=== PATIENT | female | born 1945 | race African-American/Black ===

== ENCOUNTER 2019-03-21 11:08 | Inpatient (IN) | payer OTHER, MEDICAID ==
[~2019-03-21] VITALS: Ht 160 cm; Wt 88.6 kg
[~2019-03-21 11:08] MED LIST: DIGO125T82 PO; DILT180C66 PO; FERROUS GL325 ( 36 ) PO; FURO-151 PO; HYDR-4133 PO; IBUP-1653 PO; KDUR20 PO; METF-414 PO; SACU1TAB PO
[2019-03-21 13:16] LABS: CHLORIDE 105 mEq/L (98-107)
[2019-03-21 13:23] LABS: BASOPHILS % 0.6 % (0.0-2.0); EOSINOPHILS % 1.2 % (0.0-5.0); HEMATOCRIT. 37.7 % (36.0-48.0); HEMOGLOBIN. 11.7 g/dL (12.0-16.0); LYMPHOCYTES % 16.5 % (20.0-50.0); MEAN CORPUSCULAR HEMOGLOBIN 25.1 pg (28.0-32.0); MEAN CORPUSCULAR VOLUME 80.7 fL (81.0-99.0); MEAN PLATELET VOLUME 7.6 fl (7.4-10.4); MONOCYTES % 9.5 % (2.0-8.0); NEUTROPHILS % 72.2 % (40.0-76.0); PLATELET 241 x1000/uL (130-400); RED BLOOD CELL COUNT 4.67 mill/uL (4.2-5.4); RED CELL DISTRIBUTION WIDTH 19.2 % (11.6-14.6)
[2019-03-21] MEDS ORDERED: ENALAPRIL 2.5MG/2ML VIAL 2ML IV ONE (14:15)
[2019-03-21] MEDS ORDERED: FUROSEMIDE 40MG/4ML VIAL IVP ONE (14:15)
[2019-03-21 18:32] VITALS: BP 159/82
[2019-03-21 20:00] VITALS: BP 156/56
[2019-03-21] MEDS ORDERED: DEXTROSE 50% WATER 50ML SYRINGE IV PRN (22:15)
[2019-03-21] MEDS: HYDRALAZINE HCL 50MG TABLET PO SCH (22:20)
[2019-03-22] VITALS: BP 144/53
[2019-03-22 04:00] VITALS: BP 163/71
[2019-03-22] MEDS: FUROSEMIDE 40MG/4ML VIAL IVP SCH ×2 (05:25→17:55)
[2019-03-22] MEDS: BLOOD SUGAR DIAGNOSTIC STRIP TEST SCH ×4 (07:10→20:49)
[2019-03-22] MEDS: INSULIN LISPRO 100 UNITS/ML SUBCUT SCH ×4 (07:40→20:49)
[2019-03-22 08:00] VITALS: BP 145/65
[2019-03-22 08:51] LABS: BASOPHILS % 0.5 % (0.0-2.0); EOSINOPHILS % 2.6 % (0.0-5.0); HEMATOCRIT. 42.5 % (36.0-48.0); LYMPHOCYTES % 12.9 % (20.0-50.0); MEAN CORPUSCULAR HEMOGLOBIN 24.9 pg (28.0-32.0); MEAN CORPUSCULAR VOLUME 81.5 fL (81.0-99.0); MEAN PLATELET VOLUME 8.1 fl (7.4-10.4); MONOCYTES % 9.4 % (2.0-8.0); NEUTROPHILS % 74.6 % (40.0-76.0); PLATELET 270 x1000/uL (130-400); RED BLOOD CELL COUNT 5.21 mill/uL (4.2-5.4); RED CELL DISTRIBUTION WIDTH 19.4 % (11.6-14.6)
[2019-03-22 08:56] LABS: CHLORIDE 102 mEq/L (98-107)
[2019-03-22 09:05] LABS: T4 FREE 1.12 ng/dL (0.76-1.46)
[2019-03-22] MEDS: ENOXAPARIN 40MG/0.4ML SYR SUBCUT SCH (09:31)
[2019-03-22] MEDS: LOSARTAN POTASSIUM 100 MG TABLET PO SCH (09:31)
[2019-03-22] MEDS: HYDRALAZINE HCL 50MG TABLET PO SCH ×2 (09:31→20:49)
[2019-03-22] MEDS: ASPIRIN 81MG TABLET PO SCH (09:31)
[2019-03-22 12:00] VITALS: BP_SYST 146; BP_DIAS 64; BP_DIAS 68
[2019-03-22] MEDS ORDERED: DIPHENHYDRAMINE 50MG/ML VIAL IV PRN (14:30)
[2019-03-22] MEDS ORDERED: LORAZEPAM 2MG/ML CPJ IV PRN (14:30)
[2019-03-22] MEDS ORDERED: ACETAMINOPHEN 325MG TABLET PO PRN (14:30)
[2019-03-22] MEDS ORDERED: DOCUSATE SODIUM 100MG CAPSULE PO PRN (14:30)
[2019-03-22] MEDS ORDERED: ACETAMINOPHEN 650MG SUPP PR PRN (14:30)
[2019-03-22] MEDS ORDERED: NA PHOS,M-B/NA PHOS,DI-BA ENEMA 118ML PR PRN (14:30)
[2019-03-22] MEDS ORDERED: CLONIDINE 0.1MG TABLET PO PRN (14:30)
[2019-03-22 14:58] LABS: BG BASE EXCESS 10.2 mmol/L (-2.0-2.0); BG CARBOXYHEMOGLOBIN 1.7 % (0.5-1.5); BG HCO3 ACT 37.6 mmol/L (22.0-26.0); BG METHEMOGLOBIN 0.3 % (0.0-1.5); BG OXYGEN SATURATION 81.6 % (92.0-98.5); BG PCO2 63.9 mmHg (35.0-45.0); BG PH 7.387 (7.350-7.450); BG PO2 48.4 mmHg (75.0-100.0); BG SAMPLE SITE RIGHT RADIAL; BG VENT MODE ROOM AIR
[2019-03-22] MEDS ORDERED: ASPIRIN 81MG TABLET PO SCH (15:00)
[2019-03-22 16:00] VITALS: BP 136/71
[2019-03-22 16:36] LABS: CREATINE KINASE 46 IU/L (26-192)
[2019-03-22 16:37] LABS: CREATINE KINASE MB FRACTION < 1.0 ng/mL (0.5-3.6)
[2019-03-22 20:00] VITALS: BP 141/73
[2019-03-23] VITALS: BP 142/74
[2019-03-23 04:00] VITALS: BP 127/67
[2019-03-23] MEDS: FUROSEMIDE 40MG/4ML VIAL IVP SCH ×2 (05:54→17:29)
[2019-03-23 06:01] LABS: INR 1.1; PROTHROMBIN TIME 11.7 sec (9.6-11.0)
[2019-03-23 06:05] LABS: CHLORIDE 96 mEq/L (98-107)
[2019-03-23 06:30] LABS: HEMATOCRIT 39.4 % (36.0-48.0); HEMOGLOBIN 12.3 g/dL (12.0-16.0); MEAN CORPUSCULAR HEMOGLOBIN 24.9 pg (28.0-32.0); MEAN CORPUSCULAR VOLUME 79.6 fL (81.0-99.0); PLATELET 242 x1000/uL (130-400); RED BLOOD CELL COUNT 4.95 mill/uL (4.2-5.4); RED CELL DISTRIBUTION WIDTH 19.3 % (11.6-14.6)
[2019-03-23] MEDS: INSULIN LISPRO 100 UNITS/ML SUBCUT SCH ×4 (07:40→21:00)
[2019-03-23] MEDS: BLOOD SUGAR DIAGNOSTIC STRIP TEST SCH ×4 (07:55→21:00)
[2019-03-23 08:00] VITALS: BP 140/81
[2019-03-23] MEDS: LOSARTAN POTASSIUM 100 MG TABLET PO SCH (09:47)
[2019-03-23] MEDS: ASPIRIN 81MG TABLET PO SCH (09:47)
[2019-03-23] MEDS: ENOXAPARIN 40MG/0.4ML SYR SUBCUT SCH (09:47)
[2019-03-23] MEDS: HYDRALAZINE HCL 50MG TABLET PO SCH ×2 (09:47→21:32)
[2019-03-23 12:00] VITALS: BP 130/67
[2019-03-23 12:50] LABS: CLARITY URINE CLEAR (CLEAR); COLOR URINE YELLOW (YELLOW); KETONES URINE NEGATIVE (NEGATIVE); LEUKOCYTE ESTERASE URINE NEGATIVE (NEGATIVE); NITRITE URINE NEGATIVE (NEGATIVE); OCCULT BLOOD URINE NEGATIVE (NEGATIVE); PROTEIN URINE NEGATIVE (NEGATIVE); SPECIFIC GRAVITY URINE 1.011 (1.005-1.030); UROBILINOGEN URINE 0.2 E.U./dL (0.2-1.0)
[2019-03-23] MEDS: PREDNISONE 20MG TABLET PO SCH (14:27)
[2019-03-23 16:00] VITALS: BP 141/68
[2019-03-23 16:25] LABS: BG BASE EXCESS 11.5 mmol/L (-2.0-2.0); BG CARBOXYHEMOGLOBIN 1.7 % (0.5-1.5); BG DEOXYHEMOGLOBIN 16.2 % (0.0-5.0); BG FRACTION INSPIRED OXYGEN 21; BG METHEMOGLOBIN 0.3 % (0.0-1.5); BG OXYGEN SATURATION 83.5 % (92.0-98.5); BG OXYHEMOGLOBIN 81.8 % (94.0-97.0); BG PH 7.434 (7.350-7.450); BG PO2 48.6 mmHg (75.0-100.0); BG SAMPLE SITE RIGHT RADIAL; BG TOTAL HEMOGLOBIN 13.1 g/dL (12.0-18.0); BG VENT MODE ROOM AIR
[2019-03-24 00:47] VITALS: BP 110/59
[2019-03-24 04:00] VITALS: BP 114/60
[2019-03-24] MEDS: FUROSEMIDE 40MG/4ML VIAL IVP SCH ×2 (05:38→18:00)
[2019-03-24] MEDS: BLOOD SUGAR DIAGNOSTIC STRIP TEST SCH ×3 (06:22→17:04)
[2019-03-24] MEDS: INSULIN LISPRO 100 UNITS/ML SUBCUT SCH ×3 (06:51→17:04)
[2019-03-24 08:00] VITALS: BP 117/55
[2019-03-24] MEDS: ASPIRIN 81MG TABLET PO SCH (08:23)
[2019-03-24] MEDS: PREDNISONE 20MG TABLET PO SCH (08:24)
[2019-03-24] MEDS: HYDRALAZINE HCL 50MG TABLET PO SCH (08:24)
[2019-03-24] MEDS: LOSARTAN POTASSIUM 100 MG TABLET PO SCH (08:24)
[2019-03-24] MEDS: ENOXAPARIN 40MG/0.4ML SYR SUBCUT SCH (08:25)
[2019-03-24 12:00] VITALS: BP 132/60
[2019-03-24 16:00] VITALS: BP 144/75
[2019-03-24 18:27] VITALS: BP 144/75
== END 2019-03-24 20:10 | disposition home or self-care (01) | DRG 292 ==
LOC: ER 11:08 → 8WST 16:06 → ENRESERV 17:34
PROVIDERS: ADMIT Internal Medicine; ATTEND Internal Medicine
DX: I11.0 Hypertensive heart disease with heart failure (principal); E44.0 Moderate protein-calorie malnutrition; I89.0 Lymphedema, not elsewhere classified; I50.43 Acute on chronic combined systolic (congestive) and diastolic (congestive) heart failure; E11.9 Type 2 diabetes mellitus without complications; J40 Bronchitis, not specified as acute or chronic; I27.20 Pulmonary hypertension, unspecified; D86.9 Sarcoidosis, unspecified; N63.0 Unspecified lump in unspecified breast; Z90.710 Acquired absence of both cervix and uterus; Z79.84 Long term (current) use of oral hypoglycemic drugs
CPT/HCPCS: 36415; 36600; 71045; 80048; 81003; 82375; 82550; 82553; 82805; 82962; 83880; 84439; 84443; 84484; 85027; 86300; 93005; 93306; 93970; 99285; J1650; J1940; J3490; J7512

== ENCOUNTER 2019-07-30 06:34 | Emergency (ER) | payer OTHER, MEDICAID ==
[~2019-07-30] VITALS: Ht 160 cm; Wt 93.0 kg
[~2019-07-30 06:34] MED LIST changes: -DIGO125T82 PO; -DILT180C66 PO; -IBUP-1653 PO
[2019-07-30] MEDS ORDERED: ONDANSETRON HCL 4MG/2ML INJ IV STA (08:31)
[2019-07-30 09:27] LABS: BASOPHILS % 0.2 % (0.0-2.0); CHLORIDE 98 mEq/L (98-107); EOSINOPHILS % 1.1 % (0.0-5.0); HEMATOCRIT. 33.9 % (36.0-48.0); HEMOGLOBIN. 11.1 g/dL (12.0-16.0); LYMPHOCYTES % 15.2 % (20.0-50.0); MEAN CORPUSCULAR HEMOGLOBIN 29.7 pg (28.0-32.0); MEAN CORPUSCULAR VOLUME 90.6 fL (81.0-99.0); MEAN PLATELET VOLUME 8.3 fl (7.4-10.4); MONOCYTES % 8.8 % (2.0-8.0); NEUTROPHILS % 74.7 % (40.0-76.0); PLATELET 325 x1000/uL (130-400); PROTHROMBIN TIME 10.4 sec (9.6-11.0); RED BLOOD CELL COUNT 3.74 mill/uL (4.2-5.4); RED CELL DISTRIBUTION WIDTH 13.4 % (11.6-14.6)
[2019-07-30 10:09] LABS: CLARITY URINE CLEAR (CLEAR); COLOR URINE YELLOW (YELLOW); KETONES URINE NEGATIVE (NEGATIVE); LEUKOCYTE ESTERASE URINE 1+ (NEGATIVE); NITRITE URINE NEGATIVE (NEGATIVE); OCCULT BLOOD URINE 1+ (NEGATIVE); PROTEIN URINE NEGATIVE (NEGATIVE); SPECIFIC GRAVITY URINE 1.007 (1.005-1.030); UROBILINOGEN URINE 0.2 E.U./dL (0.2-1.0)
[2019-07-30 11:21] VITALS: BP 155/64
== END 2019-07-30 11:37 | disposition home or self-care (01) ==
LOC: ER 06:34
DX: N39.0 Urinary tract infection, site not specified (principal); I11.0 Hypertensive heart disease with heart failure; I50.9 Heart failure, unspecified; E11.9 Type 2 diabetes mellitus without complications; Z90.710 Acquired absence of both cervix and uterus; Z79.899 Other long term (current) drug therapy
CPT/HCPCS: 36415; 71045; 80053; 81003; 83880; 84484; 85025; 99284

== ENCOUNTER 2022-04-09 11:20 | Inpatient (IN) | payer MEDICARE, MEDICAID ==
[~2022-04-09] VITALS: Ht 160 cm; Wt 98.4 kg
[2022-04-09 12:37] LABS: BASOPHILS % 0.3 % (0.0-2.0); EOSINOPHILS % 0.5 % (0.0-5.0); HEMATOCRIT. 35.6 % (36.0-48.0); LYMPHOCYTES % 9.2 % (20.0-50.0); MEAN CORPUSCULAR HEMOGLOBIN 28.7 pg (28.0-32.0); MEAN CORPUSCULAR VOLUME 92.5 fL (81.0-99.0); MONOCYTES % 7.5 % (2.0-8.0); NEUTROPHILS % 82.5 % (40.0-76.0); PLATELET 278 x1000/uL (130-400); RED BLOOD CELL COUNT 3.85 mill/uL (4.2-5.4); RED CELL DISTRIBUTION WIDTH 17.4 % (11.6-14.6)
[2022-04-09 12:42] LABS: CHLORIDE 99 mEq/L (98-107)
[2022-04-09] MEDS ORDERED: DILTIAZEM HCL 5MG/ML 5ML VIAL IV ONE ×2 (14:15→16:00)
[2022-04-09] MEDS ORDERED: FUROSEMIDE 20MG/2ML VIAL IVP ONE (14:15)
[2022-04-09] MEDS ORDERED: IOHEXOL-300 100 ML BOTTLE ONE (16:00)
[2022-04-09 16:02] LABS: CLARITY URINE CLEAR (CLEAR); COLOR URINE YELLOW (YELLOW); KETONES URINE NEGATIVE (NEGATIVE); LEUKOCYTE ESTERASE URINE NEGATIVE (NEGATIVE); NITRITE URINE NEGATIVE (NEGATIVE); OCCULT BLOOD URINE NEGATIVE (NEGATIVE); PH URINE 5.5 (4.5-8.0); PROTEIN URINE TRACE (NEGATIVE); SPECIFIC GRAVITY URINE 1.009 (1.005-1.030); UROBILINOGEN URINE 0.2 E.U./dL (0.2-1.0)
[2022-04-10] MEDS ORDERED: LIDOCAINE HCL/PF 1% 2ML VIAL ONE (11:03)
[2022-04-10] MEDS ORDERED: DOCUSATE SODIUM 100MG CAPSULE PO PRN (11:15)
[2022-04-10] MEDS ORDERED: NA PHOS,M-B/NA PHOS,DI-BA ENEMA 118ML PR PRN (11:15)
[2022-04-10] MEDS ORDERED: CLONIDINE 0.1MG TABLET PO PRN (11:15)
[2022-04-10] MEDS ORDERED: ONDANSETRON HCL 4MG/2ML INJ IV PRN (11:15)
[2022-04-10] MEDS ORDERED: GUAIFENESIN 200MG/10ML SUGAR FREE UDC PO PRN (11:15)
[2022-04-10] MEDS ORDERED: DIPHENHYDRAMINE 50MG/ML VIAL IV PRN (11:15)
[2022-04-10] MEDS ORDERED: LORAZEPAM 0.5MG TABLET PO PRN (11:15)
[2022-04-10] MEDS ORDERED: MAGNESIUM/ALUMINUM HYDROXIDE/SIMETHICONE 30ML UDC PO PRN (11:15)
[2022-04-10] MEDS ORDERED: HYDROCODONE/ACETAMINOPHEN 5/325MG TABLET PO PRN (11:15)
[2022-04-10] MEDS ORDERED: DEXTROSE 50% WATER 50ML SYRINGE IV PRN (11:15)
[2022-04-10] MEDS ORDERED: ACETAMINOPHEN 325MG TABLET PO PRN (11:15)
[2022-04-10] MEDS ORDERED: IPRATROPIUM/ALBUTEROL 0.5-3(2.5)MG/3ML NEB NEB PRN (11:15)
[2022-04-10] MEDS ORDERED: ACETAMINOPHEN 650MG SUPP PR PRN (11:15)
[2022-04-10 12:45] VITALS: BP 120/93
[2022-04-10] MEDS ORDERED: NALOXONE HCL 0.4MG/ML VIAL IV PRN (13:15)
[2022-04-10 14:07] LABS: BG CARBOXYHEMOGLOBIN 0.8 % (0.5-1.5); BG DEOXYHEMOGLOBIN 7.4 % (0.0-5.0); BG FRACTION INSPIRED OXYGEN 40; BG METHEMOGLOBIN 0.2 % (0.0-1.5); BG OXYGEN SATURATION 92.5 % (92.0-98.5); BG OXYHEMOGLOBIN 91.6 % (94.0-97.0); BG PCO2 59.5 mmHg (35.0-45.0); BG PH 7.349 (7.350-7.450); BG PO2 70.1 mmHg (75.0-100.0); BG SAMPLE SITE LEFT RADIAL; BG TOTAL HEMOGLOBIN 11.5 g/dL (12.0-18.0); BG VENT MODE NASAL CANNULA
[2022-04-10] MEDS: INSULIN LISPRO 100 UNITS/ML SUBCUT SCH ×4 (14:57→20:38)
[2022-04-10] MEDS: BLOOD SUGAR DIAGNOSTIC STRIP TEST SCH ×3 (14:57→20:31)
[2022-04-10] MEDS: METOPROLOL TARTRATE 25MG TABLET PO SCH ×2 (15:07→20:30)
[2022-04-10] MEDS: DILTIAZEM HCL 90MG TABLET PO SCH ×2 (15:07→18:24)
[2022-04-10] MEDS: ENOXAPARIN 100MG/ML SYR SUBCUT SCH (15:07)
[2022-04-10] MEDS: METHYLPREDNISOLONE SOD SUCC 125 MG/2 ML VIAL IV SCH (15:08)
[2022-04-10 16:00] VITALS: BP 117/84
[2022-04-10] MEDS: FUROSEMIDE 40MG/4ML VIAL IVP SCH (18:23)
[2022-04-10] MEDS: CEFTRIAXONE 1,000 MG in DEXTROSE 5% WATER 50 ML IV SCH (18:24)
[2022-04-10] MEDS ORDERED: DIGOXIN 500MCG/2ML AMP IV NR (19:45)
[2022-04-10 20:00] VITALS: BP 99/52
[2022-04-10 22:00] VITALS: BP 121/78
[2022-04-10 22:08] LABS: HEMATOCRIT. 35.6 % (36.0-48.0); HEMOGLOBIN. 10.9 g/dL (12.0-16.0); MEAN CORPUSCULAR HEMOGLOBIN 28.2 pg (28.0-32.0); MEAN CORPUSCULAR VOLUME 92.1 fL (81.0-99.0); MEAN PLATELET VOLUME 8.2 fl (7.4-10.4); PLATELET 285 x1000/uL (130-400); RED BLOOD CELL COUNT 3.87 mill/uL (4.2-5.4)
[2022-04-10 22:16] LABS: D-DIMER 0.64 mg/L FEU (<0.50); INR 1.2
[2022-04-10 22:44] LABS: CREATINE KINASE MB FRACTION 1.4 ng/mL (0.5-3.6)
[2022-04-10 22:49] LABS: PLATELET ESTIMATE NORMAL
[2022-04-11] VITALS (12 sets, daily range): BP systolic 92–122; BP diastolic 50–74
[2022-04-11] MEDS: DILTIAZEM HCL 90MG TABLET PO SCH ×4 (00:09→17:23)
[2022-04-11] MEDS: ENOXAPARIN 100MG/ML SYR SUBCUT SCH ×2 (02:08→13:03)
[2022-04-11 07:38] LABS: HEMATOCRIT. 35.6 % (36.0-48.0); MEAN CORPUSCULAR HEMOGLOBIN 28.6 pg (28.0-32.0); MEAN CORPUSCULAR VOLUME 92.7 fL (81.0-99.0); MEAN PLATELET VOLUME 7.7 fl (7.4-10.4); MONOCYTES % 2.6 % (2.0-8.0); NEUTROPHILS % 89.4 % (40.0-76.0); PLATELET 255 x1000/uL (130-400); RED BLOOD CELL COUNT 3.84 mill/uL (4.2-5.4); RED CELL DISTRIBUTION WIDTH 17.3 % (11.6-14.6)
[2022-04-11] MEDS: BLOOD SUGAR DIAGNOSTIC STRIP TEST SCH ×4 (07:57→20:24)
[2022-04-11] MEDS: INSULIN LISPRO 100 UNITS/ML SUBCUT SCH ×4 (07:59→20:24)
[2022-04-11] MEDS: METHYLPREDNISOLONE SOD SUCC 125 MG/2 ML VIAL IV SCH (08:59)
[2022-04-11] MEDS: FUROSEMIDE 40MG/4ML VIAL IVP SCH ×2 (08:59→16:59)
[2022-04-11] MEDS: ASPIRIN 81MG EC TABLET PO SCH (08:59)
[2022-04-11] MEDS: METOPROLOL TARTRATE 25MG TABLET PO SCH ×2 (09:01→20:23)
[2022-04-11 09:13] LABS: DIGOXIN 0.3 ng/mL (0.9-2.0)
[2022-04-11] MEDS: IPRATROPIUM/ALBUTEROL 0.5-3(2.5)MG/3ML NEB NEB SCH ×3 (09:14→20:14)
[2022-04-11] MEDS: CEFTRIAXONE 1,000 MG in DEXTROSE 5% WATER 50 ML IV SCH (17:23)
[2022-04-12] VITALS (12 sets, daily range): BP systolic 100–131; BP diastolic 58–98
[2022-04-12] MEDS: ENOXAPARIN 100MG/ML SYR SUBCUT SCH ×2 (01:15→14:54)
[2022-04-12] MEDS: IPRATROPIUM/ALBUTEROL 0.5-3(2.5)MG/3ML NEB NEB SCH ×3 (02:29→20:43)
[2022-04-12] MEDS: DILTIAZEM HCL 90MG TABLET PO SCH ×4 (05:13→17:02)
[2022-04-12] MEDS: INSULIN LISPRO 100 UNITS/ML SUBCUT SCH ×4 (08:00→21:00)
[2022-04-12] MEDS: BLOOD SUGAR DIAGNOSTIC STRIP TEST SCH ×4 (08:20→21:01)
[2022-04-12] MEDS: METHYLPREDNISOLONE SOD SUCC 125 MG/2 ML VIAL IV SCH (09:52)
[2022-04-12] MEDS: ASPIRIN 81MG EC TABLET PO SCH (09:52)
[2022-04-12] MEDS: FUROSEMIDE 40MG/4ML VIAL IVP SCH ×2 (09:53→16:47)
[2022-04-12] MEDS: METOPROLOL TARTRATE 50MG TABLET PO SCH ×2 (11:00→21:03)
[2022-04-12] MEDS: CEFTRIAXONE 1,000 MG in DEXTROSE 5% WATER 50 ML IV SCH (16:57)
[2022-04-13] VITALS (12 sets, daily range): BP systolic 109–125; BP diastolic 63–86
[2022-04-13] MEDS: ENOXAPARIN 100MG/ML SYR SUBCUT SCH (01:00)
[2022-04-13] MEDS: DILTIAZEM HCL 90MG TABLET PO SCH ×4 (01:00→17:48)
[2022-04-13] MEDS: IPRATROPIUM/ALBUTEROL 0.5-3(2.5)MG/3ML NEB NEB SCH ×4 (01:06→20:42)
[2022-04-13 06:28] LABS: HEMATOCRIT. 33.8 % (36.0-48.0); HEMOGLOBIN. 10.7 g/dL (12.0-16.0); MEAN CORPUSCULAR HEMOGLOBIN 28.6 pg (28.0-32.0); MEAN CORPUSCULAR VOLUME 90.3 fL (81.0-99.0); MEAN PLATELET VOLUME 8.2 fl (7.4-10.4); PLATELET 244 x1000/uL (130-400); RED BLOOD CELL COUNT 3.75 mill/uL (4.2-5.4); RED CELL DISTRIBUTION WIDTH 16.7 % (11.6-14.6)
[2022-04-13] MEDS: BLOOD SUGAR DIAGNOSTIC STRIP TEST SCH ×4 (07:30→20:54)
[2022-04-13] MEDS: INSULIN LISPRO 100 UNITS/ML SUBCUT SCH ×4 (08:00→20:54)
[2022-04-13] MEDS: METHYLPREDNISOLONE SOD SUCC 125 MG/2 ML VIAL IV SCH (10:21)
[2022-04-13] MEDS: ASPIRIN 81MG EC TABLET PO SCH (10:22)
[2022-04-13] MEDS: METOPROLOL TARTRATE 50MG TABLET PO SCH ×2 (10:22→20:54)
[2022-04-13] MEDS: FUROSEMIDE 40MG/4ML VIAL IVP SCH ×2 (10:22→17:48)
[2022-04-13 13:07] LABS: PLATELET ESTIMATE NORMAL
[2022-04-13] MEDS: CEFTRIAXONE 1,000 MG in DEXTROSE 5% WATER 50 ML IV SCH (17:48)
[2022-04-13] MEDS ORDERED: METHYLPREDNISOLONE SOD SUCC 40 MG/ML VIAL IV SCH (20:07)
[2022-04-13] MEDS ORDERED: ENOXAPARIN 100MG/ML SYR SUBCUT SCH (21:00)
[2022-04-14] VITALS (7 sets, daily range): BP systolic 99–127; BP diastolic 58–75
[2022-04-14] MEDS: DILTIAZEM HCL 90MG TABLET PO SCH ×2 (00:53→06:08)
[2022-04-14] MEDS: IPRATROPIUM/ALBUTEROL 0.5-3(2.5)MG/3ML NEB NEB SCH ×2 (02:06→08:24)
[2022-04-14] MEDS: BLOOD SUGAR DIAGNOSTIC STRIP TEST SCH (07:59)
[2022-04-14] MEDS: INSULIN LISPRO 100 UNITS/ML SUBCUT SCH (07:59)
[2022-04-14 08:14] LABS: BASOPHILS % 0.1 % (0.0-2.0); EOSINOPHILS % 0.5 % (0.0-5.0); HEMATOCRIT. 35.7 % (36.0-48.0); HEMOGLOBIN. 11.2 g/dL (12.0-16.0); MEAN CORPUSCULAR HEMOGLOBIN 28.5 pg (28.0-32.0); MEAN CORPUSCULAR VOLUME 90.9 fL (81.0-99.0); NEUTROPHILS % 75.4 % (40.0-76.0); PLATELET 216 x1000/uL (130-400); RED BLOOD CELL COUNT 3.93 mill/uL (4.2-5.4)
[2022-04-14] MEDS: ASPIRIN 81MG EC TABLET PO SCH (08:19)
[2022-04-14] MEDS: METOPROLOL TARTRATE 50MG TABLET PO SCH (08:20)
[2022-04-14] MEDS ORDERED: METHYLPREDNISOLONE SOD SUCC 40 MG/ML VIAL IV SCH (09:00)
== END 2022-04-14 14:57 | disposition home or self-care (01) | DRG 280 ==
LOC: ER 11:20 → EDBEDREQ 14:20 → MICUSO 17:46 → EDBEDREQ 17:47 → EDBEDREQTM 17:47 → 6WST 04-10 13:10 → 5EST 04-10 21:16
PROVIDERS: ADMIT Internal Medicine; ATTEND Internal Medicine
DX: I13.0 Hypertensive heart and chronic kidney disease with heart failure and stage 1 through stage 4 chronic kidney disease, or unspecified chronic kidney disease (principal); I21.4 Non-ST elevation (NSTEMI) myocardial infarction; I50.43 Acute on chronic combined systolic (congestive) and diastolic (congestive) heart failure; N17.9 Acute kidney failure, unspecified; E87.2 Acidosis; D68.59 Other primary thrombophilia; I27.20 Pulmonary hypertension, unspecified; I48.0 Paroxysmal atrial fibrillation; N61.0 Mastitis without abscess; N18.9 Chronic kidney disease, unspecified; E87.5 Hyperkalemia; E66.01 Morbid (severe) obesity due to excess calories; D63.1 Anemia in chronic kidney disease; E11.22 Type 2 diabetes mellitus with diabetic chronic kidney disease; Z68.38 Body mass index [BMI] 38.0-38.9, adult; Z91.19 Patient's noncompliance with other medical treatment and regimen; Z91.14 Patient's other noncompliance with medication regimen; Z68.36 Body mass index [BMI] 36.0-36.9, adult; Z79.899 Other long term (current) drug therapy; Z82.49 Family history of ischemic heart disease and other diseases of the circulatory system; Z90.710 Acquired absence of both cervix and uterus; Z99.81 Dependence on supplemental oxygen
CPT/HCPCS: 36415; 36600; 71045; 71260; 76700; 80048; 80053; 80061; 80162; 81003; 82375; 82550; 82553; 82805; 82962; 83036; 83605; 83735; 83880; 84443; 84484; 85025; 85379; 93005; 93306; 93970; 94640; 94664; 99285; A6261; J0696; J1160; J1650; J1815; J1940; J2920; J2930; J3490; J7060; Q9967

== ENCOUNTER 2022-05-07 10:07 | Inpatient (IN) | payer MEDICARE, MEDICAID ==
[~2022-05-07] VITALS: Ht 165.1 cm; Wt 106.1 kg
[2022-05-07 11:02] LABS: BASOPHILS % 0.6 % (0.0-2.0); EOSINOPHILS % 1.3 % (0.0-5.0); HEMATOCRIT. 35.1 % (36.0-48.0); HEMOGLOBIN. 11.1 g/dL (12.0-16.0); LYMPHOCYTES % 9.4 % (20.0-50.0); MEAN CORPUSCULAR HEMOGLOBIN 28.9 pg (28.0-32.0); MEAN CORPUSCULAR VOLUME 91.7 fL (81.0-99.0); MEAN PLATELET VOLUME 7.9 fl (7.4-10.4); NEUTROPHILS % 80.7 % (40.0-76.0); PLATELET 309 x1000/uL (130-400); RED BLOOD CELL COUNT 3.83 mill/uL (4.2-5.4); RED CELL DISTRIBUTION WIDTH 17.4 % (11.6-14.6)
[2022-05-07 11:19] LABS: CHLORIDE 101 mEq/L (98-107)
[2022-05-07] MEDS ORDERED: FUROSEMIDE 40MG/4ML VIAL IVP ONE (12:45)
[2022-05-07] MEDS ORDERED: DILTIAZEM HCL 60MG TABLET PO SCH (13:45)
[2022-05-07] MEDS ORDERED: DILTIAZEM HCL 5MG/ML 5ML VIAL IV NR (13:45)
[2022-05-07] MEDS ORDERED: ENOXAPARIN 100MG/ML SYR SUBCUT SCH (15:00)
[2022-05-07 16:13] LABS: INR 1.2; PROTHROMBIN TIME 12.6 sec (9.6-11.0)
[2022-05-07] MEDS: DIGOXIN 500MCG/2ML AMP IV SCH ×2 (16:40→22:12)
[2022-05-07] MEDS ORDERED: ACETAMINOPHEN 325MG TABLET PO PRN (17:15)
[2022-05-07] MEDS ORDERED: ONDANSETRON HCL 4MG/2ML INJ IV PRN (17:15)
[2022-05-07 18:25] VITALS: BP 132/62
[2022-05-07 20:00] VITALS: BP 110/69
[2022-05-08] VITALS: BP 100/72
[2022-05-08] MEDS ORDERED: DEXTROSE 50% WATER 50ML SYRINGE IV PRN (03:45)
[2022-05-08 04:00] VITALS: BP 117/72
[2022-05-08 06:26] LABS: CHLORIDE 104 mEq/L (98-107)
[2022-05-08] MEDS: DILTIAZEM HCL 90MG TABLET PO SCH ×4 (06:31→18:15)
[2022-05-08] MEDS: INSULIN LISPRO 100 UNITS/ML SUBCUT SCH ×4 (06:54→21:37)
[2022-05-08] MEDS: BLOOD SUGAR DIAGNOSTIC STRIP TEST SCH ×4 (06:54→20:35)
[2022-05-08 08:00] VITALS: BP 98/53
[2022-05-08 08:04] LABS: BASOPHILS % 0.7 % (0.0-2.0); EOSINOPHILS % 2.1 % (0.0-5.0); HEMATOCRIT. 33.7 % (36.0-48.0); HEMOGLOBIN. 10.2 g/dL (12.0-16.0); LYMPHOCYTES % 14.1 % (20.0-50.0); MEAN CORPUSCULAR HEMOGLOBIN 28.6 pg (28.0-32.0); MEAN CORPUSCULAR VOLUME 93.9 fL (81.0-99.0); MEAN PLATELET VOLUME 8.3 fl (7.4-10.4); NEUTROPHILS % 72.1 % (40.0-76.0); PLATELET 225 x1000/uL (130-400); RED BLOOD CELL COUNT 3.58 mill/uL (4.2-5.4); RED CELL DISTRIBUTION WIDTH 17.4 % (11.6-14.6)
[2022-05-08 12:00] VITALS: BP 114/65
[2022-05-08 16:00] VITALS: BP 116/68
[2022-05-08] MEDS ORDERED: ENOXAPARIN 100MG/ML SYR SUBCUT SCH (17:00)
[2022-05-08] MEDS ORDERED: APIXABAN 2.5 MG TABLET PO SCH (21:00)
[2022-05-08] MEDS: METOPROLOL TARTRATE 25MG TABLET PO SCH (21:44)
[2022-05-08] MEDS: APIXABAN 5 MG TABLET PO SCH (21:44)
[2022-05-09] VITALS: BP 100/55
[2022-05-09] MEDS ORDERED: ASPIRIN 81MG TABLET PO NR (02:15)
[2022-05-09 04:00] VITALS: BP 107/62
[2022-05-09] MEDS: DILTIAZEM HCL 90MG TABLET PO SCH ×4 (06:00→18:00)
[2022-05-09] MEDS: BLOOD SUGAR DIAGNOSTIC STRIP TEST SCH ×3 (06:36→21:00)
[2022-05-09] MEDS: INSULIN LISPRO 100 UNITS/ML SUBCUT SCH ×4 (06:36→21:00)
[2022-05-09 08:00] VITALS: BP 105/58
[2022-05-09] MEDS: ASPIRIN 81MG TABLET PO SCH (09:10)
[2022-05-09] MEDS: APIXABAN 5 MG TABLET PO SCH ×2 (09:10→22:29)
[2022-05-09] MEDS: METOPROLOL TARTRATE 25MG TABLET PO SCH ×2 (09:13→21:00)
[2022-05-09 12:00] VITALS: BP 109/62
[2022-05-09 16:00] VITALS: BP 103/66
[2022-05-09] MEDS ORDERED: *TOBRAMYCIN PER PHARMACY XX SCH (19:30)
[2022-05-09 20:00] VITALS: BP 98/54
[2022-05-09] MEDS ORDERED: LEVOFLOXACIN 500MG PREMIX 100 ML IV NR (20:30)
[2022-05-09] MEDS ORDERED: VANCOMYCIN 1250MG in DEXTROSE 5% WATER 250ML IV NR (21:00)
[2022-05-09] MEDS ORDERED: WATER IV NR (21:00)
[2022-05-09] MEDS ORDERED: TOBRAMYCIN SULFATE IV NR (21:00)
[2022-05-09] MEDS ORDERED: VANCOMYCIN 1.25GM PMX (XELLIA) 250 ML IV NR (21:00)
[2022-05-09] MEDS ORDERED: DEXT 5% IV NR (21:00)
[2022-05-10] VITALS: BP 115/53
[2022-05-10 04:00] VITALS: BP 112/76
[2022-05-10] MEDS: DILTIAZEM HCL 90MG TABLET PO SCH ×3 (06:40→12:00)
[2022-05-10] MEDS: BLOOD SUGAR DIAGNOSTIC STRIP TEST SCH ×3 (07:41→17:40)
[2022-05-10] MEDS: INSULIN LISPRO 100 UNITS/ML SUBCUT SCH ×2 (07:41→12:15)
[2022-05-10 08:00] VITALS: BP 134/52
[2022-05-10 08:43] LABS: BASOPHILS % 0.3 % (0.0-2.0); HEMOGLOBIN. 10.5 g/dL (12.0-16.0); LYMPHOCYTES % 12.6 % (20.0-50.0); MEAN CORPUSCULAR HEMOGLOBIN 29.3 pg (28.0-32.0); MEAN CORPUSCULAR VOLUME 92.2 fL (81.0-99.0); MONOCYTES % 10.7 % (2.0-8.0); NEUTROPHILS % 73.4 % (40.0-76.0); PLATELET 238 x1000/uL (130-400); RED BLOOD CELL COUNT 3.58 mill/uL (4.2-5.4); RED CELL DISTRIBUTION WIDTH 17.1 % (11.6-14.6)
[2022-05-10] MEDS ORDERED: VANCOMYCIN 1GM PMX (XELLIA) 200 ML IV SCH (09:00)
[2022-05-10] MEDS: METOPROLOL TARTRATE 25MG TABLET PO SCH (09:00)
[2022-05-10 09:01] LABS: CHLORIDE 102 mEq/L (98-107)
[2022-05-10] MEDS: ASPIRIN 81MG TABLET PO SCH (09:09)
[2022-05-10] MEDS: APIXABAN 5 MG TABLET PO SCH (09:09)
[2022-05-10 12:00] VITALS: BP 109/62
[2022-05-10] MEDS ORDERED: AMOX1TAB16 MT (13:22)
[2022-05-10] MEDS ORDERED: SULF1TAB48 MT (13:22)
[2022-05-10 16:00] VITALS: BP_SYST 109; BP_SYST 156; BP_DIAS 67; BP_DIAS 69
[2022-05-10 17:23] VITALS: BP 156/69
[2022-05-10] MEDS ORDERED: TOBRAMYCIN SULFATE 80 MG in SODIUM CHLORIDE 0.9% 100 ML IV SCH (20:00)
[2022-05-10] MEDS ORDERED: VANCOMYCIN 750MG PMX (XELLIA) 150 ML IV SCH (21:00)
[2022-05-10] MEDS ORDERED: LEVOFLOXACIN 250MG PREMIX 50 ML IV SCH (22:00)
== END 2022-05-10 17:56 | disposition home or self-care (01) | DRG 291 ==
LOC: ER 10:07 → 7EST 12:47 → EDBEDREQTM 13:00 → EDBEDREQ 13:00 → ENRESERV 16:28 → 7WST 18:35
PROVIDERS: ADMIT Internal Medicine; ATTEND Internal Medicine
DX: I13.0 Hypertensive heart and chronic kidney disease with heart failure and stage 1 through stage 4 chronic kidney disease, or unspecified chronic kidney disease (principal); I50.33 Acute on chronic diastolic (congestive) heart failure; I48.0 Paroxysmal atrial fibrillation; E11.22 Type 2 diabetes mellitus with diabetic chronic kidney disease; I08.1 Rheumatic disorders of both mitral and tricuspid valves; N18.9 Chronic kidney disease, unspecified; E66.01 Morbid (severe) obesity due to excess calories; N63.0 Unspecified lump in unspecified breast; R77.8 Other specified abnormalities of plasma proteins; Z68.38 Body mass index [BMI] 38.0-38.9, adult; Z90.710 Acquired absence of both cervix and uterus; Z79.01 Long term (current) use of anticoagulants; Z79.84 Long term (current) use of oral hypoglycemic drugs; Z79.899 Other long term (current) drug therapy; N61.0 Mastitis without abscess
CPT/HCPCS: 36415; 71045; 76642; 80053; 82962; 83036; 83880; 84484; 85025; 93005; 99285; J1160; J1650; J1815; J1940; J1956; J3260; J3370; J3490; J7050; J7060

== ENCOUNTER 2022-07-14 16:13 | Inpatient (IN) | payer MEDICARE, MEDICAID ==
[~2022-07-14] VITALS: Ht 160 cm; Wt 93.9 kg
[~2022-07-14 16:13] MED LIST changes: +AMOX1TAB16 MT; +SULF1TAB48 MT
[2022-07-14] MEDS ORDERED: ASPIRIN 81MG TABLET PO ONE (17:15)
[2022-07-14] MEDS ORDERED: DILTIAZEM HCL 5MG/ML 5ML VIAL IV ONE (17:15)
[2022-07-14] MEDS ORDERED: NITROGLYCERIN OINT 1GM/INCH UDPKT TD ONE (17:15)
[2022-07-14] MEDS ORDERED: FUROSEMIDE 40MG/4ML VIAL IV ONE (17:15)
[2022-07-14 17:28] LABS: HEMATOCRIT. 33.3 % (36.0-48.0); HEMOGLOBIN. 10.3 g/dL (12.0-16.0); MEAN CORPUSCULAR HEMOGLOBIN 28.9 pg (28.0-32.0); MEAN CORPUSCULAR VOLUME 93.2 fL (81.0-99.0); MEAN PLATELET VOLUME 8.6 fl (7.4-10.4); PLATELET 202 x1000/uL (130-400); RED BLOOD CELL COUNT 3.57 mill/uL (4.2-5.4); RED CELL DISTRIBUTION WIDTH 18.1 % (11.6-14.6)
[2022-07-14 17:37] LABS: CHLORIDE 105 mEq/L (98-107)
[2022-07-14 17:41] LABS: INR 1.3; PARTIAL THROMBOPLASTIN TIME 25.6 sec (23.4-31.0); PROTHROMBIN TIME 13.5 sec (9.6-11.0)
[2022-07-14 18:08] LABS: PLATELET ESTIMATE NORMAL
[2022-07-14] MEDS ORDERED: DILTIAZEM HCL 60MG TABLET PO ONE (19:30)
[2022-07-15 12:05] VITALS: BP 101/78
[2022-07-15 15:22] VITALS: BP 110/56
[2022-07-15] MEDS ORDERED: DIGOXIN 500MCG/2ML AMP IV NR (15:45)
[2022-07-15 16:00] VITALS: BP 101/78
[2022-07-15] MEDS: DILTIAZEM HCL 30MG TABLET PO SCH ×2 (16:00→18:00)
[2022-07-15 18:00] VITALS: BP 103/78
[2022-07-15] MEDS ORDERED: DIGOXIN 500MCG/2ML AMP IV SCH (18:00)
[2022-07-15 20:00] VITALS: BP 113/61
[2022-07-16] VITALS: BP 101/44
[2022-07-16 04:00] VITALS: BP 120/67
[2022-07-16] MEDS: DILTIAZEM HCL 30MG TABLET PO SCH ×4 (05:45→17:30)
[2022-07-16 08:23] VITALS: BP 98/68
[2022-07-16] MEDS: ENOXAPARIN 40MG/0.4ML SYR SUBCUT SCH (09:06)
[2022-07-16] MEDS ORDERED: DEXTROSE 50% WATER 50ML SYRINGE IV PRN (11:00)
[2022-07-16] MEDS: BLOOD SUGAR DIAGNOSTIC STRIP TEST SCH ×3 (11:40→20:54)
[2022-07-16] MEDS: INSULIN LISPRO 100 UNITS/ML SUBCUT SCH ×3 (12:10→20:54)
[2022-07-16 12:30] VITALS: BP 107/71
[2022-07-16 13:17] LABS: BASOPHILS % 0.3 % (0.0-2.0); EOSINOPHILS % 3.2 % (0.0-5.0); HEMATOCRIT. 35.2 % (36.0-48.0); LYMPHOCYTES % 9.7 % (20.0-50.0); MEAN CORPUSCULAR HEMOGLOBIN 28.7 pg (28.0-32.0); MEAN CORPUSCULAR VOLUME 92.1 fL (81.0-99.0); MEAN PLATELET VOLUME 8.6 fl (7.4-10.4); MONOCYTES % 8.3 % (2.0-8.0); NEUTROPHILS % 78.5 % (40.0-76.0); PLATELET 198 x1000/uL (130-400); RED BLOOD CELL COUNT 3.82 mill/uL (4.2-5.4); RED CELL DISTRIBUTION WIDTH 18.6 % (11.6-14.6)
[2022-07-16 16:00] VITALS: BP 96/52
[2022-07-16] MEDS: DIGOXIN 250MCG TABLET PO SCH (17:30)
[2022-07-16 20:00] VITALS: BP 124/70
[2022-07-17] VITALS: BP 91/65
[2022-07-17] MEDS: DILTIAZEM HCL 30MG TABLET PO SCH ×4 (00:36→20:56)
[2022-07-17 04:00] VITALS: BP 97/64
[2022-07-17 05:05] LABS: BASOPHILS % 0.4 % (0.0-2.0); EOSINOPHILS % 3.8 % (0.0-5.0); HEMATOCRIT. 31.9 % (36.0-48.0); MEAN CORPUSCULAR HEMOGLOBIN 28.6 pg (28.0-32.0); MEAN CORPUSCULAR VOLUME 91.1 fL (81.0-99.0); MEAN PLATELET VOLUME 8.5 fl (7.4-10.4); MONOCYTES % 9.5 % (2.0-8.0); NEUTROPHILS % 76.3 % (40.0-76.0); PLATELET 188 x1000/uL (130-400); RED CELL DISTRIBUTION WIDTH 17.9 % (11.6-14.6)
[2022-07-17] MEDS: BLOOD SUGAR DIAGNOSTIC STRIP TEST SCH ×4 (06:02→21:49)
[2022-07-17] MEDS: INSULIN LISPRO 100 UNITS/ML SUBCUT SCH ×4 (06:02→21:00)
[2022-07-17 08:00] VITALS: BP 116/68
[2022-07-17] MEDS: ENOXAPARIN 40MG/0.4ML SYR SUBCUT SCH (15:34)
[2022-07-17 16:00] VITALS: BP 103/72
[2022-07-17 20:00] VITALS: BP 106/54
[2022-07-17] MEDS: DIGOXIN 250MCG TABLET PO SCH (20:55)
[2022-07-18] VITALS: BP 109/58
[2022-07-18] MEDS: DILTIAZEM HCL 30MG TABLET PO SCH ×4 (00:19→18:21)
[2022-07-18 04:00] VITALS: BP 128/77
[2022-07-18] MEDS: BLOOD SUGAR DIAGNOSTIC STRIP TEST SCH ×4 (06:10→20:22)
[2022-07-18] MEDS: INSULIN LISPRO 100 UNITS/ML SUBCUT SCH ×4 (06:10→20:22)
[2022-07-18 08:00] VITALS: BP 108/56
[2022-07-18] MEDS: ENOXAPARIN 40MG/0.4ML SYR SUBCUT SCH (09:02)
[2022-07-18] MEDS ORDERED: POTASSIUM CHLORIDE 20MEQ/PACKET PO NR (11:00)
[2022-07-18] MEDS ORDERED: FUROSEMIDE 40MG/4ML VIAL IVP NR (11:00)
[2022-07-18 11:50] LABS: BASOPHILS % 0.3 % (0.0-2.0); EOSINOPHILS % 2.6 % (0.0-5.0); HEMATOCRIT. 31.2 % (36.0-48.0); HEMOGLOBIN. 9.6 g/dL (12.0-16.0); LYMPHOCYTES % 7.9 % (20.0-50.0); MEAN CORPUSCULAR HEMOGLOBIN 28.6 pg (28.0-32.0); MEAN CORPUSCULAR VOLUME 93.1 fL (81.0-99.0); MEAN PLATELET VOLUME 8.6 fl (7.4-10.4); MONOCYTES % 8.1 % (2.0-8.0); NEUTROPHILS % 81.1 % (40.0-76.0); PLATELET 182 x1000/uL (130-400); RED BLOOD CELL COUNT 3.35 mill/uL (4.2-5.4); RED CELL DISTRIBUTION WIDTH 18.2 % (11.6-14.6)
[2022-07-18 12:00] VITALS: BP 101/58
[2022-07-18 16:00] VITALS: BP 123/58
[2022-07-18] MEDS: DIGOXIN 250MCG TABLET PO SCH (18:21)
[2022-07-18 20:00] VITALS: BP 106/53
[2022-07-19] VITALS: BP 107/56
[2022-07-19] MEDS: DILTIAZEM HCL 30MG TABLET PO SCH ×4 (00:54→18:00)
[2022-07-19 04:00] VITALS: BP 113/69
[2022-07-19] MEDS: INSULIN LISPRO 100 UNITS/ML SUBCUT SCH ×4 (05:54→20:42)
[2022-07-19] MEDS: BLOOD SUGAR DIAGNOSTIC STRIP TEST SCH ×4 (05:54→20:42)
[2022-07-19 08:00] VITALS: BP 101/52
[2022-07-19] MEDS: ENOXAPARIN 40MG/0.4ML SYR SUBCUT SCH (10:36)
[2022-07-19 12:00] VITALS: BP 124/69
[2022-07-19 12:44] LABS: BASOPHILS % 0.4 % (0.0-2.0); EOSINOPHILS % 2.5 % (0.0-5.0); HEMATOCRIT. 32.6 % (36.0-48.0); LYMPHOCYTES % 11.8 % (20.0-50.0); MEAN CORPUSCULAR HEMOGLOBIN 28.8 pg (28.0-32.0); MEAN CORPUSCULAR VOLUME 93.5 fL (81.0-99.0); MEAN PLATELET VOLUME 8.8 fl (7.4-10.4); MONOCYTES % 12.6 % (2.0-8.0); NEUTROPHILS % 72.7 % (40.0-76.0); PLATELET 169 x1000/uL (130-400); RED BLOOD CELL COUNT 3.49 mill/uL (4.2-5.4); RED CELL DISTRIBUTION WIDTH 18.2 % (11.6-14.6)
[2022-07-19 16:00] VITALS: BP 98/52
[2022-07-19] MEDS: DIGOXIN 250MCG TABLET PO SCH (19:09)
[2022-07-19 20:00] VITALS: BP 118/69
[2022-07-19] MEDS: ACETAMINOPHEN 325MG TABLET PO PRN (20:57)
[2022-07-20] VITALS: BP 110/63
[2022-07-20] MEDS: DILTIAZEM HCL 30MG TABLET PO SCH ×5 (00:54→21:23)
[2022-07-20 04:00] VITALS: BP 104/51
[2022-07-20] MEDS: BLOOD SUGAR DIAGNOSTIC STRIP TEST SCH ×4 (06:24→21:00)
[2022-07-20] MEDS: INSULIN LISPRO 100 UNITS/ML SUBCUT SCH ×4 (06:24→21:00)
[2022-07-20 08:00] VITALS: BP 123/60
[2022-07-20] MEDS: ENOXAPARIN 40MG/0.4ML SYR SUBCUT SCH (09:45)
[2022-07-20 12:00] VITALS: BP 124/62
[2022-07-20 16:00] VITALS: BP 100/67
[2022-07-20] MEDS: DIGOXIN 250MCG TABLET PO SCH (17:09)
[2022-07-20 20:00] VITALS: BP 108/56
[2022-07-21] VITALS (66 sets, daily range): BP systolic 107–182; BP diastolic 53–110
[2022-07-21] MEDS: BLOOD SUGAR DIAGNOSTIC STRIP TEST SCH ×4 (05:32→21:59)
[2022-07-21] MEDS: INSULIN LISPRO 100 UNITS/ML SUBCUT SCH ×4 (05:32→21:00)
[2022-07-21] MEDS: ONDANSETRON HCL 4MG/2ML INJ IV PRN (05:33)
[2022-07-21] MEDS: DILTIAZEM HCL 30MG TABLET PO SCH ×2 (05:33→12:50)
[2022-07-21] MEDS: ENOXAPARIN 40MG/0.4ML SYR SUBCUT SCH (09:59)
[2022-07-21 10:33] LABS: BG BASE EXCESS 11.6 mmol/L (-2.0-2.0); BG CARBOXYHEMOGLOBIN 1.4 % (0.5-1.5); BG DEOXYHEMOGLOBIN 8.8 % (0.0-5.0); BG FRACTION INSPIRED OXYGEN 100; BG METHEMOGLOBIN 0.5 % (0.0-1.5); BG OXYHEMOGLOBIN 89.3 % (94.0-97.0); BG PCO2 148.7 mmHg (35.0-45.0); BG PH 7.108 (7.350-7.450); BG PO2 76.5 mmHg (75.0-100.0); BG SAMPLE SITE RIGHT RADIAL; BG TOTAL HEMOGLOBIN 11.9 g/dL (12.0-18.0); BG VENT MODE MASK - NRB
[2022-07-21] MEDS ORDERED: METHYLPREDNISOLONE SOD SUCC 125 MG/2 ML VIAL IV NR (11:00)
[2022-07-21] MEDS ORDERED: PROPOFOL 10MG/ML 100ML 100 ML IV PRN (12:00)
[2022-07-21] MEDS ORDERED: FENTANYL 2500MCG/250ML PMX 250 ML IV PRN (12:00)
[2022-07-21 13:07] LABS: BG BASE EXCESS 11.8 mmol/L (-2.0-2.0); BG CARBOXYHEMOGLOBIN 0.7 % (0.5-1.5); BG DEOXYHEMOGLOBIN 0.2 % (0.0-5.0); BG FRACTION INSPIRED OXYGEN 100; BG HCO3 ACT 35.8 mmol/L (22.0-26.0); BG OXYGEN SATURATION 99.8 % (92.0-98.5); BG OXYHEMOGLOBIN 99.1 % (94.0-97.0); BG PH 7.528 (7.350-7.450); BG PO2 388.6 mmHg (75.0-100.0); BG SAMPLE SITE RIGHT RADIAL; BG TOTAL HEMOGLOBIN 11.7 g/dL (12.0-18.0); BG VENT MODE VENT - AC
[2022-07-21] MEDS: PANTOPRAZOLE SODIUM 40 MG/VIAL IV SCH (13:52)
[2022-07-21] MEDS ORDERED: VANCOMYCIN 1.25GM PMX (XELLIA) 250 ML IV SCH (15:00)
[2022-07-21 15:43] LABS: HEMATOCRIT. 36.4 % (36.0-48.0); HEMOGLOBIN. 11.2 g/dL (12.0-16.0); MEAN CORPUSCULAR HEMOGLOBIN 29.1 pg (28.0-32.0); MEAN CORPUSCULAR VOLUME 94.3 fL (81.0-99.0); MEAN PLATELET VOLUME 8.6 fl (7.4-10.4); PLATELET 176 x1000/uL (130-400); RED BLOOD CELL COUNT 3.86 mill/uL (4.2-5.4); RED CELL DISTRIBUTION WIDTH 18.1 % (11.6-14.6)
[2022-07-21] MEDS: PIPERACILLIN/TAZOBACTAM 3.375 G in DEXTROSE 5% WATER 50 ML IV SCH (15:46)
[2022-07-21 16:22] LABS: CHLORIDE 104 mEq/L (98-107)
[2022-07-21 16:36] LABS: T4 FREE 1.41 ng/dL (0.76-1.46)
[2022-07-21] MEDS: DIGOXIN 500MCG/2ML AMP IV SCH (17:47)
[2022-07-21] MEDS: DILTIAZEM HCL 30MG TABLET NG SCH (17:47)
[2022-07-21 18:03] LABS: PLATELET ESTIMATE NORMAL
[2022-07-22] VITALS (78 sets, daily range): BP systolic 120–165; BP diastolic 40–93
[2022-07-22] MEDS: PIPERACILLIN/TAZOBACTAM 3.375 G in DEXTROSE 5% WATER 50 ML IV SCH ×4 (00:04→21:44)
[2022-07-22] MEDS: DILTIAZEM HCL 30MG TABLET NG SCH ×3 (00:06→11:54)
[2022-07-22 06:45] LABS: HEMATOCRIT. 32.3 % (36.0-48.0); HEMOGLOBIN. 10.1 g/dL (12.0-16.0); MEAN CORPUSCULAR VOLUME 92.2 fL (81.0-99.0); MEAN PLATELET VOLUME 9.4 fl (7.4-10.4); PLATELET 170 x1000/uL (130-400)
[2022-07-22 07:14] LABS: CHLORIDE 107 mEq/L (98-107)
[2022-07-22] MEDS: INSULIN LISPRO 100 UNITS/ML SUBCUT SCH ×4 (08:03→21:40)
[2022-07-22] MEDS: BLOOD SUGAR DIAGNOSTIC STRIP TEST SCH ×4 (08:03→21:00)
[2022-07-22] MEDS: ENOXAPARIN 40MG/0.4ML SYR SUBCUT SCH (08:04)
[2022-07-22] MEDS: PANTOPRAZOLE SODIUM 40 MG/VIAL IV SCH (08:04)
[2022-07-22 10:21] LABS: PLATELET ESTIMATE NORMAL
[2022-07-22] MEDS ORDERED: FENTANYL 2500MCG/250ML PMX 250 ML IV ONE (13:15)
[2022-07-22] MEDS ORDERED: MIDAZOLAM 100MG/100ML PMX 100 ML IV PRN (13:15)
[2022-07-22] MEDS: MIDAZOLAM HCL 100 MG in SODIUM CHLORIDE 0.9% 100 ML IV PRN (14:49)
[2022-07-22] MEDS ORDERED: VANCOMYCIN 750MG PREMIX 150 ML IV SCH (15:00)
[2022-07-22] MEDS: DIGOXIN 500MCG/2ML AMP IV SCH (18:37)
[2022-07-22] MEDS: DILTIAZEM HCL 60MG TABLET NG SCH (21:45)
[2022-07-23] VITALS (61 sets, daily range): BP systolic 128–175; BP diastolic 60–93
[2022-07-23 05:49] LABS: BASOPHILS % 0.3 % (0.0-2.0); EOSINOPHILS % 0.1 % (0.0-5.0); HEMOGLOBIN. 10.2 g/dL (12.0-16.0); LYMPHOCYTES % 8.3 % (20.0-50.0); MEAN CORPUSCULAR VOLUME 91.3 fL (81.0-99.0); MEAN PLATELET VOLUME 9.2 fl (7.4-10.4); MONOCYTES % 9.5 % (2.0-8.0); NEUTROPHILS % 81.8 % (40.0-76.0); PLATELET 178 x1000/uL (130-400); RED CELL DISTRIBUTION WIDTH 18.7 % (11.6-14.6)
[2022-07-23] MEDS: PIPERACILLIN/TAZOBACTAM 3.375 G in DEXTROSE 5% WATER 50 ML IV SCH ×2 (05:55→13:43)
[2022-07-23] MEDS: DILTIAZEM HCL 60MG TABLET NG SCH ×3 (05:56→21:33)
[2022-07-23] MEDS: INSULIN LISPRO 100 UNITS/ML SUBCUT SCH ×4 (07:50→21:07)
[2022-07-23] MEDS: BLOOD SUGAR DIAGNOSTIC STRIP TEST SCH ×4 (07:50→20:50)
[2022-07-23 08:29] LABS: BG CARBOXYHEMOGLOBIN 0.5 % (0.5-1.5); BG DEOXYHEMOGLOBIN 3.2 % (0.0-5.0); BG FRACTION INSPIRED OXYGEN 40; BG HCO3 ACT 33.9 mmol/L (22.0-26.0); BG METHEMOGLOBIN 0.3 % (0.0-1.5); BG OXYGEN SATURATION 96.8 % (92.0-98.5); BG PCO2 30.2 mmHg (35.0-45.0); BG PH 7.668 (7.350-7.450); BG PO2 70.7 mmHg (75.0-100.0); BG SAMPLE SITE RIGHT RADIAL; BG TOTAL HEMOGLOBIN 10.6 g/dL (12.0-18.0); BG VENT MODE VENT - AC
[2022-07-23] MEDS: PANTOPRAZOLE SODIUM 40 MG/VIAL IV SCH (08:56)
[2022-07-23] MEDS: ENOXAPARIN 40MG/0.4ML SYR SUBCUT SCH (08:56)
[2022-07-23] MEDS: DIGOXIN 500MCG/2ML AMP IV SCH (18:14)
[2022-07-23] MEDS: IPRATROPIUM/ALBUTEROL 0.5-3(2.5)MG/3ML NEB HHN PRN (23:46)
[2022-07-24] VITALS (41 sets, daily range): BP systolic 114–162; BP diastolic 54–87
[2022-07-24] MEDS: MIDAZOLAM HCL 100 MG in SODIUM CHLORIDE 0.9% 100 ML IV PRN (04:13)
[2022-07-24 05:26] LABS: HEMATOCRIT. 32.2 % (36.0-48.0); HEMOGLOBIN. 10.4 g/dL (12.0-16.0); MEAN CORPUSCULAR HEMOGLOBIN 28.9 pg (28.0-32.0); MEAN CORPUSCULAR VOLUME 89.6 fL (81.0-99.0); MEAN PLATELET VOLUME 8.5 fl (7.4-10.4); PLATELET 172 x1000/uL (130-400); RED BLOOD CELL COUNT 3.59 mill/uL (4.2-5.4); RED CELL DISTRIBUTION WIDTH 17.8 % (11.6-14.6)
[2022-07-24] MEDS: DILTIAZEM HCL 60MG TABLET NG SCH ×3 (06:16→22:29)
[2022-07-24] MEDS: PIPERACILLIN/TAZOBACTAM 3.375 G in DEXTROSE 5% WATER 50 ML IV SCH ×2 (06:17→21:19)
[2022-07-24] MEDS: BLOOD SUGAR DIAGNOSTIC STRIP TEST SCH ×4 (07:50→21:00)
[2022-07-24] MEDS: INSULIN LISPRO 100 UNITS/ML SUBCUT SCH ×4 (08:20→21:20)
[2022-07-24 08:41] LABS: BG BASE EXCESS 8.8 mmol/L (-2.0-2.0); BG CARBOXYHEMOGLOBIN 0.9 % (0.5-1.5); BG DEOXYHEMOGLOBIN 3.5 % (0.0-5.0); BG FRACTION INSPIRED OXYGEN 40; BG HCO3 ACT 32.1 mmol/L (22.0-26.0); BG METHEMOGLOBIN 0.3 % (0.0-1.5); BG OXYGEN SATURATION 96.5 % (92.0-98.5); BG OXYHEMOGLOBIN 95.3 % (94.0-97.0); BG PCO2 39.1 mmHg (35.0-45.0); BG PH 7.532 (7.350-7.450); BG SAMPLE SITE RIGHT RADIAL; BG TOTAL HEMOGLOBIN 11.4 g/dL (12.0-18.0); BG VENT MODE VENT - AC
[2022-07-24] MEDS ORDERED: POTASSIUM CHLORIDE 20MEQ/PACKET PO NR (09:00)
[2022-07-24] MEDS: PANTOPRAZOLE SODIUM 40 MG/VIAL IV SCH (09:09)
[2022-07-24] MEDS: METHYLPREDNISOLONE SOD SUCC 40 MG/ML VIAL IV SCH ×2 (09:09→21:19)
[2022-07-24] MEDS: ENOXAPARIN 40MG/0.4ML SYR SUBCUT SCH (09:09)
[2022-07-24 10:14] LABS: NUCLEATED RED BLOOD CELLS 2 /100 WBC; PLATELET ESTIMATE NORMAL
[2022-07-24] MEDS ORDERED: FUROSEMIDE 40MG/4ML VIAL IVP NR (11:00)
[2022-07-24] MEDS ORDERED: VANCOMYCIN 750MG PREMIX 150 ML IV NR (12:00)
[2022-07-24] MEDS: DIGOXIN 500MCG/2ML AMP IV SCH (17:19)
[2022-07-25] VITALS (48 sets, daily range): BP systolic 113–142; BP diastolic 52–104
[2022-07-25] MEDS: DILTIAZEM HCL 60MG TABLET NG SCH (06:29)
[2022-07-25] MEDS: BLOOD SUGAR DIAGNOSTIC STRIP TEST SCH ×4 (07:50→21:35)
[2022-07-25] MEDS: INSULIN LISPRO 100 UNITS/ML SUBCUT SCH ×4 (09:17→21:36)
[2022-07-25] MEDS: PIPERACILLIN/TAZOBACTAM 3.375 G in DEXTROSE 5% WATER 50 ML IV SCH ×2 (09:17→21:35)
[2022-07-25] MEDS: PANTOPRAZOLE SODIUM 40 MG/VIAL IV SCH (09:18)
[2022-07-25] MEDS: METHYLPREDNISOLONE SOD SUCC 40 MG/ML VIAL IV SCH ×2 (09:19→21:35)
[2022-07-25] MEDS: ACETAMINOPHEN 325MG TABLET PO PRN (09:19)
[2022-07-25] MEDS: ENOXAPARIN 40MG/0.4ML SYR SUBCUT SCH (09:21)
[2022-07-25 11:01] LABS: CHLORIDE 108 mEq/L (98-107)
[2022-07-25] MEDS: DILTIAZEM HCL 30MG TABLET NG SCH ×2 (14:45→18:19)
[2022-07-26] VITALS (47 sets, daily range): BP systolic 115–157; BP diastolic 57–91
[2022-07-26] MEDS: DILTIAZEM HCL 30MG TABLET NG SCH ×4 (00:04→17:46)
[2022-07-26 05:49] LABS: HEMATOCRIT. 31.9 % (36.0-48.0); HEMOGLOBIN. 10.4 g/dL (12.0-16.0); MEAN CORPUSCULAR HEMOGLOBIN 28.6 pg (28.0-32.0); MEAN CORPUSCULAR VOLUME 87.3 fL (81.0-99.0); PLATELET 181 x1000/uL (130-400); RED BLOOD CELL COUNT 3.65 mill/uL (4.2-5.4); RED CELL DISTRIBUTION WIDTH 17.3 % (11.6-14.6)
[2022-07-26 05:56] LABS: INR 1.2; PARTIAL THROMBOPLASTIN TIME 23.9 sec (23.4-31.0)
[2022-07-26 05:57] LABS: CHLORIDE 106 mEq/L (98-107)
[2022-07-26 06:06] LABS: AMYLASE 88 IU/L (25-115)
[2022-07-26] MEDS: BLOOD SUGAR DIAGNOSTIC STRIP TEST SCH ×4 (07:53→21:00)
[2022-07-26] MEDS: METHYLPREDNISOLONE SOD SUCC 40 MG/ML VIAL IV SCH (08:14)
[2022-07-26] MEDS: PANTOPRAZOLE SODIUM 40 MG/VIAL IV SCH (08:14)
[2022-07-26] MEDS: PIPERACILLIN/TAZOBACTAM 3.375 G in DEXTROSE 5% WATER 50 ML IV SCH ×2 (08:14→21:43)
[2022-07-26] MEDS: ENOXAPARIN 40MG/0.4ML SYR SUBCUT SCH (08:14)
[2022-07-26] MEDS: INSULIN LISPRO 100 UNITS/ML SUBCUT SCH ×4 (08:23→21:44)
[2022-07-26] MEDS: PREDNISONE 20MG TABLET PO SCH (09:00)
[2022-07-26] MEDS ORDERED: VANCOMYCIN 750MG PREMIX 150 ML IV NR (10:00)
[2022-07-26 10:40] LABS: BG BASE EXCESS 6.3 mmol/L (-2.0-2.0); BG CARBOXYHEMOGLOBIN 1.1 % (0.5-1.5); BG DEOXYHEMOGLOBIN 11.3 % (0.0-5.0); BG FRACTION INSPIRED OXYGEN 40; BG HCO3 ACT 32.5 mmol/L (22.0-26.0); BG METHEMOGLOBIN 0.3 % (0.0-1.5); BG OXYGEN SATURATION 88.5 % (92.0-98.5); BG OXYHEMOGLOBIN 87.3 % (94.0-97.0); BG PCO2 54.5 mmHg (35.0-45.0); BG PH 7.394 (7.350-7.450); BG PO2 63.7 mmHg (75.0-100.0); BG SAMPLE SITE RIGHT RADIAL; BG TOTAL HEMOGLOBIN 12.2 g/dL (12.0-18.0); BG TOTAL RESPIRATORY RATE 30 b/min; BG VENT MODE VENT - CPAP
[2022-07-26 10:53] LABS: PLATELET ESTIMATE NORMAL
[2022-07-26] MEDS: MIDAZOLAM HCL 100 MG in SODIUM CHLORIDE 0.9% 100 ML IV PRN (11:17)
[2022-07-26] MEDS: IPRATROPIUM/ALBUTEROL 0.5-3(2.5)MG/3ML NEB HHN PRN (12:20)
[2022-07-27] VITALS (46 sets, daily range): BP systolic 111–154; BP diastolic 51–95
[2022-07-27] MEDS: DILTIAZEM HCL 30MG TABLET NG SCH ×5 (00:15→23:34)
[2022-07-27 04:54] LABS: HEMOGLOBIN. 10.3 g/dL (12.0-16.0); MEAN CORPUSCULAR VOLUME 87.2 fL (81.0-99.0); MEAN PLATELET VOLUME 9.8 fl (7.4-10.4); PLATELET 221 x1000/uL (130-400); RED BLOOD CELL COUNT 3.66 mill/uL (4.2-5.4); RED CELL DISTRIBUTION WIDTH 17.1 % (11.6-14.6)
[2022-07-27] MEDS: BLOOD SUGAR DIAGNOSTIC STRIP TEST SCH ×4 (07:50→20:50)
[2022-07-27] MEDS: IPRATROPIUM/ALBUTEROL 0.5-3(2.5)MG/3ML NEB HHN PRN ×2 (08:01→14:37)
[2022-07-27] MEDS: PANTOPRAZOLE SODIUM 40 MG/VIAL IV SCH (08:14)
[2022-07-27] MEDS: PREDNISONE 20MG TABLET PO SCH (08:14)
[2022-07-27] MEDS: ENOXAPARIN 40MG/0.4ML SYR SUBCUT SCH (08:14)
[2022-07-27] MEDS: INSULIN LISPRO 100 UNITS/ML SUBCUT SCH ×4 (08:17→20:50)
[2022-07-27 10:29] LABS: NUCLEATED RED BLOOD CELLS 1 /100 WBC; PLATELET ESTIMATE NORMAL
[2022-07-27 14:23] LABS: BG BASE EXCESS 7.6 mmol/L (-2.0-2.0); BG CARBOXYHEMOGLOBIN 1.1 % (0.5-1.5); BG DEOXYHEMOGLOBIN 2.8 % (0.0-5.0); BG FRACTION INSPIRED OXYGEN 45; BG HCO3 ACT 32.4 mmol/L (22.0-26.0); BG METHEMOGLOBIN 0.2 % (0.0-1.5); BG OXYGEN SATURATION 97.2 % (92.0-98.5); BG OXYHEMOGLOBIN 95.9 % (94.0-97.0); BG PCO2 46.3 mmHg (35.0-45.0); BG PH 7.463 (7.350-7.450); BG PO2 102.7 mmHg (75.0-100.0); BG SAMPLE SITE RIGHT RADIAL; BG TOTAL RESPIRATORY RATE 30 b/min; BG VENT MODE VENT - CPAP
[2022-07-28] VITALS (78 sets, daily range): BP systolic 79–144; BP diastolic 41–103
[2022-07-28 00:17] LABS: BG CARBOXYHEMOGLOBIN 0.8 % (0.5-1.5); BG DEOXYHEMOGLOBIN 16.8 % (0.0-5.0); BG FRACTION INSPIRED OXYGEN 36; BG HCO3 ACT 33.2 mmol/L (22.0-26.0); BG METHEMOGLOBIN 0.2 % (0.0-1.5); BG OXYHEMOGLOBIN 82.2 % (94.0-97.0); BG PCO2 54.4 mmHg (35.0-45.0); BG PH 7.403 (7.350-7.450); BG PO2 53.3 mmHg (75.0-100.0); BG TOTAL HEMOGLOBIN 11.9 g/dL (12.0-18.0); BG VENT MODE NASAL CANNULA
[2022-07-28] MEDS: PIPERACILLIN/TAZOBACTAM 3.375 G in DEXTROSE 5% WATER 50 ML IV SCH ×3 (02:45→21:26)
[2022-07-28 06:22] LABS: HEMOGLOBIN. 10.2 g/dL (12.0-16.0); MEAN CORPUSCULAR HEMOGLOBIN 28.4 pg (28.0-32.0); MEAN CORPUSCULAR VOLUME 89.3 fL (81.0-99.0); MEAN PLATELET VOLUME 9.9 fl (7.4-10.4); PLATELET 251 x1000/uL (130-400); RED BLOOD CELL COUNT 3.58 mill/uL (4.2-5.4); RED CELL DISTRIBUTION WIDTH 17.8 % (11.6-14.6)
[2022-07-28] MEDS: DILTIAZEM HCL 30MG TABLET NG SCH ×4 (07:00→23:43)
[2022-07-28] MEDS: BLOOD SUGAR DIAGNOSTIC STRIP TEST SCH ×4 (07:50→21:25)
[2022-07-28] MEDS: INSULIN LISPRO 100 UNITS/ML SUBCUT SCH ×4 (08:01→21:27)
[2022-07-28] MEDS: PANTOPRAZOLE SODIUM 40 MG/VIAL IV SCH (08:04)
[2022-07-28] MEDS: PREDNISONE 20MG TABLET PO SCH (08:05)
[2022-07-28] MEDS: ENOXAPARIN 40MG/0.4ML SYR SUBCUT SCH (08:06)
[2022-07-28] MEDS: IPRATROPIUM/ALBUTEROL 0.5-3(2.5)MG/3ML NEB HHN PRN (08:08)
[2022-07-28] MEDS: ACETYLCYSTEINE 200MG/ML 20% VIAL 4ML INH SCH ×4 (09:10→20:49)
[2022-07-28] MEDS: METHYLPREDNISOLONE SOD SUCC 40 MG/ML VIAL IV SCH ×3 (09:10→21:25)
[2022-07-28 09:27] LABS: BG BASE EXCESS 9.6 mmol/L (-2.0-2.0); BG CARBOXYHEMOGLOBIN 1.6 % (0.5-1.5); BG DEOXYHEMOGLOBIN 26.9 % (0.0-5.0); BG FRACTION INSPIRED OXYGEN 40; BG HCO3 ACT 36.3 mmol/L (22.0-26.0); BG METHEMOGLOBIN 0.2 % (0.0-1.5); BG OXYGEN SATURATION 72.6 % (92.0-98.5); BG OXYHEMOGLOBIN 71.3 % (94.0-97.0); BG PCO2 60.4 mmHg (35.0-45.0); BG PH 7.397 (7.350-7.450); BG PO2 42.9 mmHg (75.0-100.0); BG SAMPLE SITE RIGHT RADIAL; BG TOTAL HEMOGLOBIN 11.8 g/dL (12.0-18.0); BG VENT MODE MASK - VENTI
[2022-07-28 11:10] LABS: BG BASE EXCESS 8.3 mmol/L (-2.0-2.0); BG CARBOXYHEMOGLOBIN 1.5 % (0.5-1.5); BG DEOXYHEMOGLOBIN 6.7 % (0.0-5.0); BG FRACTION INSPIRED OXYGEN 60; BG HCO3 ACT 33.8 mmol/L (22.0-26.0); BG METHEMOGLOBIN 0.3 % (0.0-1.5); BG OXYGEN SATURATION 93.2 % (92.0-98.5); BG OXYHEMOGLOBIN 91.5 % (94.0-97.0); BG PCO2 51.4 mmHg (35.0-45.0); BG PH 7.436 (7.350-7.450); BG PO2 72.8 mmHg (75.0-100.0); BG SAMPLE SITE RIGHT RADIAL; BG TOTAL HEMOGLOBIN 11.4 g/dL (12.0-18.0); BG TOTAL RESPIRATORY RATE 28 b/min; BG VENT MODE MASK - BIPAP
[2022-07-28] MEDS ORDERED: ACETYLCYSTEINE 200MG/ML 20% VIAL 4ML INH SCH (12:00)
[2022-07-28] MEDS: IPRATROPIUM/ALBUTEROL 0.5-3(2.5)MG/3ML NEB HHN SCH ×3 (12:13→20:49)
[2022-07-28] MEDS ORDERED: POTASSIUM CHLORIDE INJ 40 MEQ in DEXT 5% WATER 250 ML IV NR (13:00)
[2022-07-28 15:13] LABS: PLATELET ESTIMATE NORMAL
[2022-07-28 15:22] LABS: NUCLEATED RED BLOOD CELLS 3 /100 WBC
[2022-07-28 15:41] LABS: HEPATITIS B SURFACE ANTIGEN NEGATIVE
[2022-07-28] MEDS: SODIUM CHLORIDE 3% FOR INH 4ML UD NEB INH SCH (20:49)
[2022-07-29] VITALS (48 sets, daily range): BP systolic 106–148; BP diastolic 58–103
[2022-07-29] MEDS: ACETYLCYSTEINE 200MG/ML 20% VIAL 4ML INH SCH ×7 (00:35→23:47)
[2022-07-29] MEDS: IPRATROPIUM/ALBUTEROL 0.5-3(2.5)MG/3ML NEB HHN SCH ×7 (00:38→23:47)
[2022-07-29 06:07] LABS: HEMATOCRIT. 32.9 % (36.0-48.0); HEMOGLOBIN. 10.7 g/dL (12.0-16.0); MEAN CORPUSCULAR HEMOGLOBIN 29.3 pg (28.0-32.0); MEAN CORPUSCULAR VOLUME 89.8 fL (81.0-99.0); MEAN PLATELET VOLUME 9.6 fl (7.4-10.4); PLATELET 236 x1000/uL (130-400); RED BLOOD CELL COUNT 3.66 mill/uL (4.2-5.4); RED CELL DISTRIBUTION WIDTH 18.5 % (11.6-14.6)
[2022-07-29] MEDS: PIPERACILLIN/TAZOBACTAM 3.375 G in DEXTROSE 5% WATER 50 ML IV SCH ×3 (06:09→21:10)
[2022-07-29] MEDS: METHYLPREDNISOLONE SOD SUCC 40 MG/ML VIAL IV SCH ×3 (06:09→21:10)
[2022-07-29] MEDS: DILTIAZEM HCL 30MG TABLET NG SCH ×4 (06:09→23:48)
[2022-07-29 06:16] LABS: CHLORIDE 105 mEq/L (98-107)
[2022-07-29] MEDS: BLOOD SUGAR DIAGNOSTIC STRIP TEST SCH ×4 (07:50→21:10)
[2022-07-29] MEDS: SODIUM CHLORIDE 3% FOR INH 4ML UD NEB INH SCH ×2 (08:00→13:15)
[2022-07-29] MEDS: PANTOPRAZOLE SODIUM 40 MG/VIAL IV SCH (09:08)
[2022-07-29] MEDS: ENOXAPARIN 40MG/0.4ML SYR SUBCUT SCH (09:08)
[2022-07-29] MEDS: INSULIN LISPRO 100 UNITS/ML SUBCUT SCH ×4 (09:09→21:11)
[2022-07-29 13:48] LABS: PLATELET ESTIMATE NORMAL
[2022-07-29] MEDS ORDERED: VANCOMYCIN 1.25GM PMX (XELLIA) 250 ML IV NR (21:30)
[2022-07-30] VITALS (44 sets, daily range): BP systolic 107–152; BP diastolic 47–121
[2022-07-30] MEDS: IPRATROPIUM/ALBUTEROL 0.5-3(2.5)MG/3ML NEB HHN SCH ×5 (04:16→20:13)
[2022-07-30] MEDS: ACETYLCYSTEINE 200MG/ML 20% VIAL 4ML INH SCH ×4 (04:17→20:13)
[2022-07-30 05:40] LABS: HEMATOCRIT. 34.5 % (36.0-48.0); HEMOGLOBIN. 10.8 g/dL (12.0-16.0); MEAN CORPUSCULAR HEMOGLOBIN 28.7 pg (28.0-32.0); MEAN CORPUSCULAR VOLUME 91.5 fL (81.0-99.0); PLATELET 265 x1000/uL (130-400); RED BLOOD CELL COUNT 3.77 mill/uL (4.2-5.4); RED CELL DISTRIBUTION WIDTH 18.6 % (11.6-14.6)
[2022-07-30] MEDS: DILTIAZEM HCL 30MG TABLET NG SCH ×4 (05:43→21:17)
[2022-07-30] MEDS: METHYLPREDNISOLONE SOD SUCC 40 MG/ML VIAL IV SCH ×3 (05:43→21:17)
[2022-07-30] MEDS: PIPERACILLIN/TAZOBACTAM 3.375 G in DEXTROSE 5% WATER 50 ML IV SCH ×3 (05:43→21:17)
[2022-07-30 06:03] LABS: CHLORIDE 109 mEq/L (98-107)
[2022-07-30] MEDS: BLOOD SUGAR DIAGNOSTIC STRIP TEST SCH ×4 (07:50→20:41)
[2022-07-30 08:12] LABS: PLATELET ESTIMATE NORMAL
[2022-07-30] MEDS: INSULIN LISPRO 100 UNITS/ML SUBCUT SCH ×4 (08:20→21:16)
[2022-07-30] MEDS: PANTOPRAZOLE SODIUM 40 MG/VIAL IV SCH (09:49)
[2022-07-30] MEDS: ENOXAPARIN 40MG/0.4ML SYR SUBCUT SCH (09:49)
[2022-07-30 12:05] LABS: BG BASE EXCESS 3.2 mmol/L (-2.0-2.0); BG CARBOXYHEMOGLOBIN 0.4 % (0.5-1.5); BG FRACTION INSPIRED OXYGEN 50; BG HCO3 ACT 28.2 mmol/L (22.0-26.0); BG METHEMOGLOBIN 0.7 % (0.0-1.5); BG OXYHEMOGLOBIN 95.9 % (94.0-97.0); BG PCO2 44.7 mmHg (35.0-45.0); BG PH 7.418 (7.350-7.450); BG PO2 99.3 mmHg (75.0-100.0); BG SAMPLE SITE RIGHT BRACHIAL; BG TOTAL HEMOGLOBIN 12.1 g/dL (12.0-18.0); BG TOTAL RESPIRATORY RATE 16 b/min; BG VENT MODE MASK - BIPAP
[2022-07-30] MEDS: DEXTROSE 5% WATER 1,000 ML IV SCH (12:17)
[2022-07-30] MEDS: SODIUM CHLORIDE 3% FOR INH 4ML UD NEB INH SCH ×2 (13:12→22:00)
[2022-07-31] VITALS (29 sets, daily range): BP systolic 101–146; BP diastolic 59–106
[2022-07-31] MEDS: SODIUM CHLORIDE 3% FOR INH 4ML UD NEB INH SCH ×2 (00:20→12:48)
[2022-07-31] MEDS: IPRATROPIUM/ALBUTEROL 0.5-3(2.5)MG/3ML NEB HHN SCH ×6 (00:20→20:29)
[2022-07-31] MEDS: ACETYLCYSTEINE 200MG/ML 20% VIAL 4ML INH SCH ×5 (00:20→20:30)
[2022-07-31 05:37] LABS: HEMATOCRIT. 34.4 % (36.0-48.0); HEMOGLOBIN. 10.8 g/dL (12.0-16.0); MEAN CORPUSCULAR HEMOGLOBIN 28.9 pg (28.0-32.0); MEAN CORPUSCULAR VOLUME 91.7 fL (81.0-99.0); MEAN PLATELET VOLUME 10.1 fl (7.4-10.4); PLATELET 263 x1000/uL (130-400); RED BLOOD CELL COUNT 3.75 mill/uL (4.2-5.4); RED CELL DISTRIBUTION WIDTH 18.2 % (11.6-14.6)
[2022-07-31] MEDS: PIPERACILLIN/TAZOBACTAM 3.375 G in DEXTROSE 5% WATER 50 ML IV SCH ×3 (05:57→21:16)
[2022-07-31] MEDS: METHYLPREDNISOLONE SOD SUCC 40 MG/ML VIAL IV SCH ×3 (05:57→21:15)
[2022-07-31] MEDS: DILTIAZEM HCL 30MG TABLET NG SCH (05:58)
[2022-07-31 07:55] LABS: PLATELET ESTIMATE NORMAL
[2022-07-31] MEDS: BLOOD SUGAR DIAGNOSTIC STRIP TEST SCH ×4 (08:11→20:25)
[2022-07-31] MEDS: DEXTROSE 5% WATER 1,000 ML IV SCH (08:37)
[2022-07-31] MEDS: PANTOPRAZOLE SODIUM 40 MG/VIAL IV SCH (08:37)
[2022-07-31] MEDS: ENOXAPARIN 40MG/0.4ML SYR SUBCUT SCH (08:37)
[2022-07-31] MEDS: INSULIN LISPRO 100 UNITS/ML SUBCUT SCH ×4 (08:38→20:25)
[2022-07-31] MEDS: DILTIAZEM HCL 60MG TABLET NG SCH ×2 (13:42→21:16)
[2022-07-31] MEDS: VANCOMYCIN 1G PREMIX 200 ML IV SCH (21:15)
[2022-08-01] VITALS (26 sets, daily range): BP systolic 111–151; BP diastolic 52–94
[2022-08-01] MEDS: SODIUM CHLORIDE 3% FOR INH 4ML UD NEB INH SCH ×5 (00:30→23:35)
[2022-08-01] MEDS: IPRATROPIUM/ALBUTEROL 0.5-3(2.5)MG/3ML NEB HHN SCH ×7 (00:30→23:31)
[2022-08-01] MEDS: ACETYLCYSTEINE 200MG/ML 20% VIAL 4ML INH SCH ×8 (00:31→23:31)
[2022-08-01] MEDS: DEXTROSE 5% WATER 1,000 ML IV SCH (04:00)
[2022-08-01] MEDS: DILTIAZEM HCL 60MG TABLET NG SCH ×3 (05:23→21:48)
[2022-08-01] MEDS: PIPERACILLIN/TAZOBACTAM 3.375 G in DEXTROSE 5% WATER 50 ML IV SCH ×3 (05:23→21:48)
[2022-08-01] MEDS: METHYLPREDNISOLONE SOD SUCC 40 MG/ML VIAL IV SCH ×3 (05:23→21:46)
[2022-08-01 06:18] LABS: HEMATOCRIT. 33.8 % (36.0-48.0); HEMOGLOBIN. 10.8 g/dL (12.0-16.0); MEAN CORPUSCULAR HEMOGLOBIN 29.2 pg (28.0-32.0); MEAN CORPUSCULAR VOLUME 91.1 fL (81.0-99.0); PLATELET 232 x1000/uL (130-400); RED BLOOD CELL COUNT 3.71 mill/uL (4.2-5.4); RED CELL DISTRIBUTION WIDTH 19.1 % (11.6-14.6)
[2022-08-01] MEDS: BLOOD SUGAR DIAGNOSTIC STRIP TEST SCH ×3 (07:50→21:15)
[2022-08-01] MEDS: PANTOPRAZOLE SODIUM 40 MG/VIAL IV SCH (09:08)
[2022-08-01] MEDS: ENOXAPARIN 40MG/0.4ML SYR SUBCUT SCH (09:08)
[2022-08-01] MEDS: INSULIN LISPRO 100 UNITS/ML SUBCUT SCH ×4 (09:13→21:49)
[2022-08-01 14:04] LABS: PLATELET ESTIMATE NORMAL
[2022-08-01] MEDS: ACETAMINOPHEN 325MG TABLET PO PRN (16:30)
[2022-08-01] MEDS: ONDANSETRON HCL 4MG/2ML INJ IV PRN (16:30)
[2022-08-02] VITALS (11 sets, daily range): BP systolic 122–158; BP diastolic 69–87
[2022-08-02] MEDS: IPRATROPIUM/ALBUTEROL 0.5-3(2.5)MG/3ML NEB HHN SCH ×6 (04:12→20:40)
[2022-08-02] MEDS: ACETYLCYSTEINE 200MG/ML 20% VIAL 4ML INH SCH (04:12)
[2022-08-02] MEDS: METHYLPREDNISOLONE SOD SUCC 40 MG/ML VIAL IV SCH ×3 (05:45→21:30)
[2022-08-02] MEDS: PIPERACILLIN/TAZOBACTAM 3.375 G in DEXTROSE 5% WATER 50 ML IV SCH (05:45)
[2022-08-02] MEDS: DILTIAZEM HCL 60MG TABLET NG SCH ×3 (05:46→21:30)
[2022-08-02 06:12] LABS: HEMATOCRIT. 32.8 % (36.0-48.0); HEMOGLOBIN. 10.4 g/dL (12.0-16.0); MEAN CORPUSCULAR HEMOGLOBIN 28.5 pg (28.0-32.0); MEAN CORPUSCULAR VOLUME 90.1 fL (81.0-99.0); MEAN PLATELET VOLUME 10.1 fl (7.4-10.4); PLATELET 226 x1000/uL (130-400); RED BLOOD CELL COUNT 3.64 mill/uL (4.2-5.4); RED CELL DISTRIBUTION WIDTH 19.7 % (11.6-14.6)
[2022-08-02] MEDS: BLOOD SUGAR DIAGNOSTIC STRIP TEST SCH ×4 (07:55→21:29)
[2022-08-02] MEDS: INSULIN LISPRO 100 UNITS/ML SUBCUT SCH ×4 (09:00→21:31)
[2022-08-02] MEDS: ENOXAPARIN 40MG/0.4ML SYR SUBCUT SCH (09:01)
[2022-08-02] MEDS: PANTOPRAZOLE SODIUM 40 MG/VIAL IV SCH (09:01)
[2022-08-02] MEDS: SODIUM CHLORIDE 3% FOR INH 4ML UD NEB INH SCH (14:00)
[2022-08-02 14:58] LABS: PLATELET ESTIMATE NORMAL
[2022-08-02] MEDS: VANCOMYCIN 1G PREMIX 200 ML IV SCH (21:30)
[2022-08-02] MEDS: ACETAMINOPHEN 325MG TABLET PO PRN (21:30)
[2022-08-03] VITALS (12 sets, daily range): BP systolic 132–154; BP diastolic 68–88
[2022-08-03] MEDS: IPRATROPIUM/ALBUTEROL 0.5-3(2.5)MG/3ML NEB HHN SCH ×6 (00:45→21:00)
[2022-08-03] MEDS: METHYLPREDNISOLONE SOD SUCC 40 MG/ML VIAL IV SCH ×3 (05:46→21:14)
[2022-08-03] MEDS: DILTIAZEM HCL 60MG TABLET NG SCH ×3 (05:47→21:14)
[2022-08-03] MEDS: BLOOD SUGAR DIAGNOSTIC STRIP TEST SCH ×4 (07:44→21:15)
[2022-08-03] MEDS: INSULIN LISPRO 100 UNITS/ML SUBCUT SCH ×4 (08:20→21:15)
[2022-08-03] MEDS: ENOXAPARIN 40MG/0.4ML SYR SUBCUT SCH (08:21)
[2022-08-03] MEDS: PANTOPRAZOLE SODIUM 40 MG/VIAL IV SCH (08:21)
[2022-08-03 12:56] LABS: HEMATOCRIT. 33.7 % (36.0-48.0); HEMOGLOBIN. 10.8 g/dL (12.0-16.0); MEAN CORPUSCULAR HEMOGLOBIN 29.4 pg (28.0-32.0); MEAN CORPUSCULAR VOLUME 91.5 fL (81.0-99.0); MEAN PLATELET VOLUME 9.5 fl (7.4-10.4); PLATELET 195 x1000/uL (130-400); RED BLOOD CELL COUNT 3.68 mill/uL (4.2-5.4); RED CELL DISTRIBUTION WIDTH 19.9 % (11.6-14.6)
[2022-08-03 14:14] LABS: NUCLEATED RED BLOOD CELLS 1 /100 WBC; PLATELET ESTIMATE NORMAL
[2022-08-03] MEDS: SODIUM CHLORIDE 3% FOR INH 4ML UD NEB INH SCH (16:30)
[2022-08-03] MEDS: ACETAMINOPHEN 325MG TABLET PO PRN (21:15)
[2022-08-04] VITALS (11 sets, daily range): BP systolic 117–164; BP diastolic 59–100
[2022-08-04] MEDS: SODIUM CHLORIDE 3% FOR INH 4ML UD NEB INH SCH ×3 (00:35→09:06)
[2022-08-04] MEDS: IPRATROPIUM/ALBUTEROL 0.5-3(2.5)MG/3ML NEB HHN SCH ×6 (01:08→20:10)
[2022-08-04] MEDS: METHYLPREDNISOLONE SOD SUCC 40 MG/ML VIAL IV SCH ×3 (05:48→21:47)
[2022-08-04] MEDS: DILTIAZEM HCL 60MG TABLET NG SCH ×3 (05:49→21:48)
[2022-08-04] MEDS: BLOOD SUGAR DIAGNOSTIC STRIP TEST SCH ×4 (07:30→21:41)
[2022-08-04 07:58] LABS: HEMATOCRIT. 33.4 % (36.0-48.0); HEMOGLOBIN. 10.8 g/dL (12.0-16.0); MEAN CORPUSCULAR HEMOGLOBIN 29.2 pg (28.0-32.0); MEAN CORPUSCULAR VOLUME 90.1 fL (81.0-99.0); MEAN PLATELET VOLUME 9.6 fl (7.4-10.4); PLATELET 208 x1000/uL (130-400); RED BLOOD CELL COUNT 3.71 mill/uL (4.2-5.4)
[2022-08-04] MEDS: PANTOPRAZOLE SODIUM 40 MG/VIAL IV SCH (09:01)
[2022-08-04] MEDS: INSULIN LISPRO 100 UNITS/ML SUBCUT SCH ×4 (09:03→21:51)
[2022-08-04] MEDS: ENOXAPARIN 40MG/0.4ML SYR SUBCUT SCH (09:05)
[2022-08-04] MEDS: ONDANSETRON HCL 4MG/2ML INJ IV PRN (14:35)
[2022-08-04 17:15] LABS: PLATELET ESTIMATE NORMAL
[2022-08-05] VITALS: BP 153/74
[2022-08-05] MEDS: IPRATROPIUM/ALBUTEROL 0.5-3(2.5)MG/3ML NEB HHN SCH ×6 (00:20→20:10)
[2022-08-05] MEDS: SODIUM CHLORIDE 3% FOR INH 4ML UD NEB INH SCH ×4 (00:35→22:00)
[2022-08-05 04:00] VITALS: BP 156/68
[2022-08-05] MEDS: METHYLPREDNISOLONE SOD SUCC 40 MG/ML VIAL IV SCH ×3 (06:26→22:21)
[2022-08-05] MEDS: DILTIAZEM HCL 60MG TABLET NG SCH ×2 (06:27→13:26)
[2022-08-05] MEDS: BLOOD SUGAR DIAGNOSTIC STRIP TEST SCH ×4 (07:30→21:00)
[2022-08-05 08:00] VITALS: BP 129/97
[2022-08-05] MEDS: INSULIN LISPRO 100 UNITS/ML SUBCUT SCH ×4 (08:00→22:23)
[2022-08-05 12:00] VITALS: BP 152/77
[2022-08-05] MEDS: ENOXAPARIN 40MG/0.4ML SYR SUBCUT SCH (12:29)
[2022-08-05] MEDS: PANTOPRAZOLE SODIUM 40 MG/VIAL IV SCH (12:30)
[2022-08-05 16:00] VITALS: BP 141/82
[2022-08-05] MEDS: APIXABAN 5 MG TABLET PO SCH (16:21)
[2022-08-05] MEDS: DILTIAZEM HCL 60MG TABLET PO SCH (17:19)
[2022-08-06] VITALS: BP 137/71
[2022-08-06] MEDS: IPRATROPIUM/ALBUTEROL 0.5-3(2.5)MG/3ML NEB HHN SCH ×3 (00:11→08:10)
[2022-08-06] MEDS: DILTIAZEM HCL 60MG TABLET PO SCH ×2 (01:12→06:02)
[2022-08-06 04:00] VITALS: BP 130/65
[2022-08-06] MEDS: METHYLPREDNISOLONE SOD SUCC 40 MG/ML VIAL IV SCH (06:02)
[2022-08-06] MEDS: SODIUM CHLORIDE 3% FOR INH 4ML UD NEB INH SCH (06:21)
[2022-08-06] MEDS: BLOOD SUGAR DIAGNOSTIC STRIP TEST SCH (07:30)
[2022-08-06 08:00] VITALS: BP 132/82
[2022-08-06] MEDS: PANTOPRAZOLE SODIUM 40 MG/VIAL IV SCH (08:42)
[2022-08-06] MEDS: APIXABAN 5 MG TABLET PO SCH (08:44)
[2022-08-06] MEDS: INSULIN LISPRO 100 UNITS/ML SUBCUT SCH (08:45)
[2022-08-06 08:52] VITALS: BP 132/82
== END 2022-08-06 10:30 | disposition home health service (06) | DRG 207 ==
LOC: ER 16:13 → 7EST 21:10 → EDBEDREQ 21:22 → EDBEDREQTM 21:22 → ENRESERV 07-15 07:50 → MICUSO 07-15 11:09 → 7EST 07-15 13:09 → CVICU 07-21 11:17 → 5EST 08-01 12:37
PROVIDERS: ADMIT Internal Medicine; ATTEND Internal Medicine
PROC: 0BH17EZ Insertion of Endotracheal Airway into Trachea, Via Natural or Artificial Opening (ICD-10-PCS; principal; 2022-07-21)
PROC: 5A1955Z Respiratory Ventilation, Greater than 96 Consecutive Hours (ICD-10-PCS; 2022-07-21)
PROC: 5A09457 Assistance with Respiratory Ventilation, 24-96 Consecutive Hours, Continuous Positive Airway Pressure (ICD-10-PCS; 2022-07-28)
PROC: 5A09357 Assistance with Respiratory Ventilation, Less than 24 Consecutive Hours, Continuous Positive Airway Pressure (ICD-10-PCS; 2022-08-01)
DX: J96.22 Acute and chronic respiratory failure with hypercapnia (principal); I50.33 Acute on chronic diastolic (congestive) heart failure; J15.1 Pneumonia due to Pseudomonas; J15.212 Pneumonia due to Methicillin resistant Staphylococcus aureus; I13.0 Hypertensive heart and chronic kidney disease with heart failure and stage 1 through stage 4 chronic kidney disease, or unspecified chronic kidney disease; N17.9 Acute kidney failure, unspecified; I47.1 Supraventricular tachycardia; I48.19 Other persistent atrial fibrillation; E87.29 Other acidosis; K80.10 Calculus of gallbladder with chronic cholecystitis without obstruction; J96.21 Acute and chronic respiratory failure with hypoxia; I48.0 Paroxysmal atrial fibrillation; E11.22 Type 2 diabetes mellitus with diabetic chronic kidney disease; N18.9 Chronic kidney disease, unspecified; I27.20 Pulmonary hypertension, unspecified; Z60.2 Problems related to living alone; I34.0 Nonrheumatic mitral (valve) insufficiency; M19.90 Unspecified osteoarthritis, unspecified site; E87.6 Hypokalemia; I49.3 Ventricular premature depolarization; T46.0X5A Adverse effect of cardiac-stimulant glycosides and drugs of similar action, initial encounter; E66.01 Morbid (severe) obesity due to excess calories; Z90.710 Acquired absence of both cervix and uterus; Z79.84 Long term (current) use of oral hypoglycemic drugs; Z79.899 Other long term (current) drug therapy; Y92.89 Other specified places as the place of occurrence of the external cause; Z78.1 Physical restraint status
CPT/HCPCS: 31500; 36415; 36600; 71045; 76705; 78227; 80048; 80053; 80061; 80076; 80162; 80202; 82140; 82150; 82375; 82805; 82962; 83036; 83735; 83880; 84145; 84439; 84443; 84450; 84460; 84478; 84484; 85025; 86705; 86709; 86803; 87070; 87077; 87186; 87340; 87426; 92610; 92950; 93005; 93306; 93970; 94002; 94003; 94640; 94660; 94667; 97162; 97530; 99291; A6261; A9537; C9113; J1160; J1650; J1815; J1940; J2250; J2405; J2543; J2704; J2920; J2930; J3370; J3480; J3490; J7050; J7060; J7070; J7512; J7608